=== PATIENT | male | born 1950 | race Caucasian/White ===

== ENCOUNTER 2018-02-14 20:52 | Inpatient (IN) | payer OTHER, MEDICAID ==
--- NOTE | 2018-02-14 21:03 | EDPHY ---
H & P Stated Complaint: SOB, lower extremity swelling, tachycardia Time Seen by Provider: 02/14/18 21:02 HPI/ROS: CHIEF COMPLAINT: Dyspnea, new onset atrial flutter, pedal edema HISTORY OF PRESENT ILLNESS: The patient presents to the ED with dyspnea, tachycardia and increasing pedal edema. The patient was seen at [facility] prior to arrival. The patient only has a history of hypertension and takes amlodipine, lisinopril metoprolol for this condition. The patient denies any fever. He does report a dry nonproductive cough. The patient reports marked dyspnea on exertion. The patient denies any history of fall or trauma. The patient denies abdominal pain, vomiting or diarrhea. The patient reports that his dyspnea is moderate to severe in nature. He has no prior history of arrhythmia. REVIEW OF SYSTEMS: A comprehensive 10 point review of systems is otherwise negative aside from elements mentioned in the history of present illness. Source: Patient Exam Limitations: No limitations - Personal History Current Tetanus Diphtheria and Acellular Pertussis (TDAP): No - Medical/Surgical History Hx Asthma: No Hx Chronic Respiratory Disease: No Hx Diabetes: No Hx Cardiac Disease: No Hx Renal Disease: No Hx Cirrhosis: No Hx Alcoholism: No Hx HIV/AIDS: No Hx Splenectomy or Spleen Trauma: No Other PMH: HTN, hernia sx - Social History Smoking Status: Current every day smoker - Physical Exam Exam: General Appearance: Alert, no distress Eyes: Pupils equal and round no pallor or injection ENT, Mouth: Mucous membranes moist Respiratory: Rales bilateral lower lobes Cardiovascular: Tachycardic, regular Gastrointestinal: Abdomen is soft and nontender, no masses, bowel sounds normal Neurological: 5/5 strength all 4 extremities Skin: Warm and dry, no rashes Musculoskeletal: Neck is supple nontender Extremities: 1+ bilateral pitting edema Constitutional: Initial Vital Signs Temperature (C) 36.7 C 02/14/18 20:59 Heart Rate 110 H 02/14/18 20:59 Respiratory Rate 20 02/14/18 20:59 Blood Pressure 170/115 H 02/14/18 20:59 O2 Sat (%) 96 02/14/18 20:59 O2 Delivery Mode Room Air Allergies/Adverse Reactions: Penicillins Allergy (Verified 02/14/18 20:59) Home Medications: Medication Instructions Recorded Lisinopril 40 mg PO DAILY 04/08/13 Pharmacy Completed 04/15/13 04/15/13 Metoprolol Tartrate 07/09/13 Medical Decision Making - Diagnostics EKG Interpretation: EKG: Complete interpretation has been separately recorded in the [email or web address] archive. Summary impression: Atrial flutter 2:1, rate 112. Imaging Results: Imaging Impressions Chest X-Ray 02/14/18 21:07 Impression: 1. Chronic cardiomegaly without failure. 2. No pneumonia. 3. In light of the patient's cigarette smoking history, this patient might benefit from low-dose chest CT lung cancer screening according to NASCET criteria. ED Course/Re-evaluation: The patient is observed to be in new onset atrial flutter with dyspnea. The patient is noted to have atrial fibrillation while on monitoring in the ED. The patient has been compliant with his outpatient medications including metoprolol, lisinopril and amlodipine. The patient was noted to be in atrial fibrillation. The patient's chest x-ray demonstrated no evidence of significant heart failure. Given his significant tachycardia a CT pulmonary angiogram was obtained which demonstrates cardiomegaly, mild pulmonary venous congestion and no evidence of a PE. The patient is relatively rate controlled at this point time. I do feel he should be admitted to the hospital for further evaluation and management of his atrial fibrillation. Consultation was made with the hospitalist service. He will be admitted by Dr. Chaudhari. Differential Diagnosis: Differential diagnosis considered includes atrial fibrillation, atrial flutter, myocardial infarction, pulmonary embolism, congestive heart failure - Data Points Laboratory Results: Laboratory Results 02/14/18 21:00 02/14/18 21:00 02/14/18 02/14/18 02/14/18 21:08 21:00 21:00 WBC 5.55 10^3/uL 10^3/uL (3.80-9.50) RBC 4.34 10^6/uL L 10^6/uL (4.40-6.38) Hgb 14.0 g/dL g/dL (13.7-17.5) Hct 41.7 % % (40.0-51.0) MCV 96.1 fL fL (81.5-99.8) MCH 32.3 pg pg (27.9-34.1) MCHC 33.6 g/dL g/dL (32.4-36.7) RDW 16.5 % H % (11.5-15.2) Plt Count 184 10^3/uL 10^3/uL (150-400) MPV 10.9 fL fL (8.7-11.7) Neut % (Auto) 65.4 % % (39.3-74.2) Lymph % (Auto) 24.7 % % (15.0-45.0) [place] % (Auto) 8.5 % % (4.5-13.0) Eos % (Auto) 0.7 % % (0.6-7.6) Baso % (Auto) 0.5 % % (0.3-1.7) Nucleat RBC Rel Count 0.0 % % (0.0-0.2) Absolute Neuts (auto) 3.63 10^3/uL 10^3/uL (1.70-6.50) Absolute Lymphs (auto) 1.37 10^3/uL 10^3/uL (1.00-3.00) Absolute Monos (auto) 0.47 10^3/uL 10^3/uL (0.30-0.80) Absolute Eos (auto) 0.04 10^3/uL 10^3/uL (0.03-0.40) Absolute Basos (auto) 0.03 10^3/uL 10^3/uL (0.02-0.10) Absolute Nucleated RBC 0.00 10^3/uL 10^3/uL (0-0.01) Immature Gran % 0.2 % % (0.0-1.1) Immature Gran # 0.01 10^3/uL 10^3/uL (0.00-0.10) Sodium 138 mEq/L mEq/L (135-145) Potassium 3.4 mEq/L mEq/L (3.3-5.0) Chloride 100 mEq/L mEq/L (97-110) Carbon Dioxide 26 mEq/l mEq/l (22-31) Anion Gap 12 mEq/L mEq/L (8-16) BUN 25 mg/dL H mg/dL (7-23) Creatinine 1.3 mg/dL mg/dL (0.7-1.3) Estimated GFR 55 Glucose 91 mg/dL mg/dL (70-100) Calcium 9.6 mg/dL mg/dL (8.5-10.4) POC Troponin I 0.01 ng/mL ng/mL (0.00-0.08) NT-Pro-B Natriuret Pep 5150 pg/mL H pg/mL (0-125) Point of Care Test Results: Chemistry 02/14/18 21:08 POC Troponin I 0.01 ng/mL ng/mL (0.00-0.08) Departure - Departure Disposition: [facility] Inpatient Acute Clinical Impression: CHF (congestive heart failure), Atrial flutter Condition: Good
--- NOTE | 2018-02-14 21:08 | CPEKG ---
Heart Rate: 112 RR Interval: 536 P-R Interval: 120 QRSD Interval: 100 QT Interval: 348 QTC Interval: 475 P [place]: 54 QRS [place]: -50 T Wave [place]: 63 EKG Severity - ABNORMAL ECG - EKG Impression: ATRIAL FLUTTER WITH 2:1 AV BLOCK Electronically Signed By: Taurus Owens 14-Feb-2018 21:49:43
[2018-02-14 21:22] LABS: PLATELET COUNT 184 10^3/uL (150-400)
[2018-02-14] MEDS ORDERED: IOPAMIDOL (ISOVUE 370) 100 ML BTL IV ONE (21:51)
[2018-02-14] MEDS ORDERED: ONDANSETRON DISINTEGRATING 4 MG TAB PO PRN (22:11)
[2018-02-14] MEDS ORDERED: ONDANSETRON 4 MG/2 ML VIAL IVP PRN (22:11)
[2018-02-14] MEDS ORDERED: FUROSEMIDE 20 MG/2 ML VIAL IVP ONE (23:42)
[2018-02-14] MEDS ORDERED: ALBUTEROL 3 ML DEYVIAL IH PRN (23:44)
[2018-02-14] MEDS ORDERED: DILTIAZEM 25 MG/5 ML VIAL IVP ONE (23:45)
[2018-02-15] MEDS: NICOTINE 14 MG/24 HR PATCH TD SCH ×2 (00:14→09:45)
--- NOTE | 2018-02-15 02:01 | PDGENHP ---
History and Physical - Chief Complaint Shortness of breath - History of Present Illness 67 yo M w/ hx of HTN presents with shortness of breath. Mr. Salvador tells me he has probably been having symptoms for a year. He has noticed decreased exercise tolerance slowly over the last year. This has gotten particularly worse over the last few weeks. He has developed dyspnea with only minimal exertion, dry cough, significant leg swelling, and needs 3 pillows to be able to sleep at night. He denies infectious symptoms including fever, chills. Upon arrival in the ED patient was noted to be in Afib/flutter. He denies any prior history of this. He takes medication for hypertension only. He previously smoked as much as 3 packs a day but is now down to 2-3 cigarettes daily. He denies any prior diagnosis of COPD. Case discussed with Dr. Tomy Owens, previous records reviewed. History Information - Allergies/Home Medication List Allergies/Adverse Reactions: Penicillins Allergy (Verified 02/14/18 20:59) Home Medications: NK [No Known Home Meds] 02/14/18 [Last Taken Unknown] I have personally reviewed and updated: family history, medical history - Past Medical History hypertension - Surgical History Reports: hernia repair - Family History Additional family history: Mother had CHF - Social History Smoking Status: Current every day smoker Review of Systems Review of Systems: ROS: 10pt was reviewed & negative except for what was stated in HPI & below Physical Exam Physical Exam: Temp Pulse Resp BP Pulse Ox 36.9 C 154 H 28 H 174/110 H 98 02/14/18 23:14 02/15/18 00:09 02/14/18 23:14 02/14/18 23:14 02/14/18 23:14 O2 (L/minute) 1 Constitutional: no apparent distress, not in pain Eyes: PERRL, EOMI Ears, Nose, Mouth, Throat: moist mucous membranes, no oral mucosal ulcers Cardiovascular: regular rate and rhythym, no murmur, rub, or gallop, JVD (8 cm above clavicle @ 45 degrees), edema (2+ FOREST b/l to upper shins) Respiratory: no respiratory distress, expiratory wheeze (Mild), inspiratory crackles Gastrointestinal: normoactive bowel sounds, soft, non-tender abdomen Skin: warm, normal color Musculoskeletal: full muscle strength, no muscle tenderness Neurologic: AAOx3, CN II-XII Intact Psychiatric: interacting appropriately, not anxious Lab Data & Imaging Review 02/14/18 21:00 02/14/18 21:00 WBC 5.55 10^3/uL (3.80-9.50) 02/14/18 21:00 RBC 4.34 10^6/uL (4.40-6.38) L 02/14/18 21:00 Hgb 14.0 g/dL (13.7-17.5) 02/14/18 21:00 Hct 41.7 % (40.0-51.0) 02/14/18 21:00 MCV 96.1 fL (81.5-99.8) 02/14/18 21:00 MCH 32.3 pg (27.9-34.1) 02/14/18 21:00 MCHC 33.6 g/dL (32.4-36.7) 02/14/18 21:00 RDW 16.5 % (11.5-15.2) H 02/14/18 21:00 Plt Count 184 10^3/uL (150-400) 02/14/18 21:00 MPV 10.9 fL (8.7-11.7) 02/14/18 21:00 Neut % (Auto) 65.4 % (39.3-74.2) 02/14/18 21:00 Lymph % (Auto) 24.7 % (15.0-45.0) 02/14/18 21:00 [place] % (Auto) 8.5 % (4.5-13.0) 02/14/18 21:00 Eos % (Auto) 0.7 % (0.6-7.6) 02/14/18 21:00 Baso % (Auto) 0.5 % (0.3-1.7) 02/14/18 21:00 Nucleat RBC Rel Count 0.0 % (0.0-0.2) 02/14/18 21:00 Absolute Neuts (auto) 3.63 10^3/uL (1.70-6.50) 02/14/18 21:00 Absolute Lymphs (auto) 1.37 10^3/uL (1.00-3.00) 02/14/18 21:00 Absolute Monos (auto) 0.47 10^3/uL (0.30-0.80) 02/14/18 21:00 Absolute Eos (auto) 0.04 10^3/uL (0.03-0.40) 02/14/18 21:00 Absolute Basos (auto) 0.03 10^3/uL (0.02-0.10) 02/14/18 21:00 Absolute Nucleated RBC 0.00 10^3/uL (0-0.01) 02/14/18 21:00 Immature Gran % 0.2 % (0.0-1.1) 02/14/18 21:00 Immature Gran # 0.01 10^3/uL (0.00-0.10) 02/14/18 21:00 Sodium 138 mEq/L (135-145) 02/14/18 21:00 Potassium 3.4 mEq/L (3.3-5.0) 02/14/18 21:00 Chloride 100 mEq/L (97-110) 02/14/18 21:00 Carbon Dioxide 26 mEq/l (22-31) 02/14/18 21:00 Anion Gap 12 mEq/L (8-16) 02/14/18 21:00 BUN 25 mg/dL (7-23) H 02/14/18 21:00 Creatinine 1.3 mg/dL (0.7-1.3) 02/14/18 21:00 Estimated GFR 55 02/14/18 21:00 Glucose 91 mg/dL (70-100) 02/14/18 21:00 Calcium 9.6 mg/dL (8.5-10.4) 02/14/18 21:00 POC Troponin I 0.01 ng/mL (0.00-0.08) 02/14/18 21:08 NT-Pro-B Natriuret Pep 5150 pg/mL (0-125) H 02/14/18 21:00 Imaging Review: Imaging Impressions Chest X-Ray 02/14/18 21:07 Impression: 1. Chronic cardiomegaly without failure. 2. No pneumonia. 3. In light of the patient's cigarette smoking history, this patient might benefit from low-dose chest CT lung cancer screening according to NASCET criteria. Chest/Thorax CTA 02/14/18 21:48 Impression: 1. Suspect early/impending CHF with CAD and LVH. 2. No evidence for pulmonary embolic disease. Results called to Dr. Owens at 20:45 pm. General information for patients regarding this examination can be found at [email or web address]. If you have questions or comments about this report, please contact me at [phone] (hospital) or [phone] (cell). Visualized and Interpreted EKG results: Yes EKG Interpretation: Positive for: other (Aflutter) Assessment & Plan Assessment: 67 yo M w/ HTN and significant smoking hx p/w new Afib/flutter and likely new CHF. Plan: 1. Afib/flutter - Aflutter on initial ECG but in Afib during my evaluation. Patient denies any prior hx of this. I suspect trigger for onset is new, decompensated CHF. - Admit to PCU for observation - Monitor on telemetry - Diltiazem IVP 10 mg x1 for now, repeat if necessary - Will benefit from volume management as below - [id number] of 2 (3 if new CHF confirmed), would discuss anticoagulation prior to discharge 2. Suspected acute, decompensated CHF - No prior hx of this but diagnosis suggested by elevated BNP, cardiomegaly, elevated JVP, and significant LE edema. - Lasix 20 mg IV BID - TTE ordered for further evaluation - Daily weights, monitor I/Os, cardiac diet 3. HTN - Continue home medications, needs med reconciliation 4. Suspected COPD - No prior diagnosis but has 50+ pack year tobacco hx and mild wheeze on exam. I do not suspect acute exacerbation. - Albuterol PRN - Would recommend outpatient PFTs Diet - Cardiac Code - Full Ppx - LMWH Dispo - Admit under observation status
[2018-02-15 04:28] LABS: PLATELET COUNT 168 10^3/uL (150-400)
[2018-02-15] MEDS ORDERED: FUROSEMIDE 20 MG/2 ML VIAL IVP SCH (09:00)
[2018-02-15] MEDS ORDERED: ENOXAPARIN 40 MG/0.4 ML SYR SC SCH (09:00)
[2018-02-15] MEDS ORDERED: DILTIAZEM 25 MG/5 ML VIAL IVP ONE (11:15)
[2018-02-15] MEDS ORDERED: DILTIAZEM 125 MG in D5W 125 ML IV SCH (11:15)
[2018-02-15] MEDS ORDERED: ATROPINE SULFATE 1 MG/10 ML SYR IVP ONE (11:16)
[2018-02-15] MEDS ORDERED: APIXABAN 5 MG TAB PO SCH (12:30)
--- NOTE | 2018-02-15 13:19 | ECHO ---
[email or web address] [address] [address] Main: [phone] Fax: Transthoracic Echocardiogram Name: NIXON FOSTER MR#: [id number] Study Date: 02/15/2018 Study Time: 10:10 AM Date of : 1950 Age: 67 year(s) Height: 175.3 cm (69 in.) Weight: 74.84 kg (165 lb.) BSA: 1.9 m2 Gender: Male Examination: Echo Indication: AF, New CHF Image Quality: Adequate Contrast: Requested by: Jose Luis Colón BP: 174 mmHg/106 mmHg Heart Rate: Rhythm: Indication: AF, New CHF Procedure Staff Senior Database Administrator: Ritu Daniels RDCS Reading Physician: Chauncey Elliott MD Requesting Provider: Conclusions: No pericardial effusion. Concentric left ventricular hypertrophy moderately reduced LV systolic function ejection fraction 35% with inferobasilar hypokinesis. Severely dilated left atrium with severe mitral regurgitation. Aortic valve sclerosis with mild aortic regurgitation. Moderate tricuspid regurgitation with a right ventricular systolic pressure of 38 mm of mercury. Measurements: Chambers Valvular Assessment AV/MV Valvular Assessment TV/PV Normal Normal Normal Name Value Range Name Value Range Name Value Range Ao Jeny (2D): 3.2 cm (1.4 cm-2.6 AV Vmax: 1.30 m/s (1 m/s-1.7 TR Vmax: 2.88 mm/s ( - ) cm) m/s) TR PGmax: 33 mmHg ( - ) IVSd (2D): 1.7 cm (0.6 cm-1.1 AV maxP mmHg ( - ) syst. PAP: 38 mmHg ( - ) cm) AV meanP mmHg ( - ) PV Vmax: 0.58 m/s (0.6 m/s-0.9 LVDd (2D): 4.6 cm (4.2 cm-5.9 MCKENZIE (VTI): 1.4 cm ( - ) m/s) cm) MV E Vmax: 0.94 m/s ( - ) PV PGmax: 1 mmHg ( - ) LVDs (2D): 4.2 cm (2.1 cm-4 MV PHT: 0.053 s ( - ) cm) MVA (PHT): 4.2 s ( - ) LVPWd (2D): 1.5 cm (0.6 cm-1 cm) LVOTd 2.0 cm 2.0 cm mm LVEF (BP): 31 % (>=55 %) EF Range: 35-40 % RVDd(2D): 2.8 cm (1.9 cm-3.8 cmmm) Continued Measurements: Chambers Valvular Assessment AV/MV Valvular Assessment TV/PV Name Value Name Value Name Value LADs: 4.4 cm MV DecTime: 180 m/s CVP (est.): 5 mmHg Patient: NIXON FOSTER Study Date: 02/15/2018 Page 1 of 2 10:10 AM LADs Lon.5 cm MV E' Septal: 0.08 m/s LA Area: 31.5 cm2 MV E/E' Septal: 12.20 LA Volume: 137 ml MV E/E' Lateral: 10.90 LA Volume Index: 72.1 ml/m2 MR ERO: 0.410 cm2 MR PISA radius: 10 mm MR Reg. Volume: 68 ml Additional Vessels Name Value Ao Ascendin.5 cm Inferior Vena Cava: 2.0 cm Findings: Left Ventricle: Normal size left ventricle. Concentric LV hypertrophy. Mildly to moderately reduced systolic funtion. The ejection fraction is estimated to be 35-40 %. Normal diastolic LV function. Basal inferior and basal inferolateral hypokinesis with overall global hypokinesis. Right Ventricle: Normal size right ventricle. Normal RV function. Left Atrium: The left atrium is severely dilated. Right Atrium: Right atrial enlargement. Mitral Valve: The mitral valve is normal in appearance and function. Mild mitral valve leaflet calcification is present. Severe mitral valve regurgitation is present. No mitral stenosis is present. Aortic Valve: The aortic valve is tri-leaflet. Aortic sclerosis is present. Mild aortic valve regurgitation is present. No aortic valve stenosis is present. Tricuspid Valve: The tricuspid valve is normal in appearance and function. Moderate tricuspid regurgitation is present. The pulmonary artery pressure is normal. Right ventricular systolic pressure measures 38mmHg. Pulmonic Valve: The pulmonic valve is normal in appearance and function. Mild pulmonic valve regurgitation is noted. Aorta: The aorta is normal. Normal size aortic root measuring 3.2 cm. Normal size ascending aorta measuring 2.5 cm. IVC: The IVC is normal sized. Pericardium: No pericardial effusion. No pleural effusion. (No Signature Object) Patient: NIXON FOSTER Study Date: 02/15/2018 Page 2 of 2 10:10 AM [id number]
--- NOTE | 2018-02-15 13:25 | GCON ---
Echocardiogram shows severe LV dysfunction with severe mitral regurgitation. Etiology of heart failure at this point unknown. Differential diagnosis would include valvular heart disease, uncontrolled atrial fibrillation, occult coronary artery disease in the setting of significant risk. Will plan for right left heart catheterization along with transesophageal echocardiogram in consideration for surgical evaluation. Risks and benefits were discussed with the patient will proceed. [f rep st] CONSULTATION DATE OF CONSULTATION: 02/15/2018 REASON FOR CONSULTATION: Atrial fibrillation/aflutter and newly diagnosed CHF. CONSULTING PHYSICIAN: Dr. Landry HISTORY OF PRESENT ILLNESS: This is a 67-year-old male whom we were asked to consult on for atrial fibrillation/aflutter and likely new CHF. The patient presented to the ED yesterday, 02/14/2018, with complaints of shortness of breath. Symptoms started a year ago and have gotten worse within the last week. The patient is an avid hiker and states he has had to shorten his hikes every day. He is now having shortness of breath just walking to the bathroom. He has also noted leg swelling, orthopnea, and PND, and is having to sleep with 5-7 pillows at night. He denies any abdominal swelling or chest pain. The patient also states that he has been having palpitations, dizziness and weakness that come and go. The patient was last seen by Dr. Bueno in August 2013 for management of hypertension. He was on HCTZ, metoprolol, and amlodipine. However, he is no longer taking these medication. Echo done on 07/24/2013, is reviewed with EF 70 %, mild MR, moderate NE, and rehp-ul-joyirdcg TR. Initial EKG in the ED showed 2:1 atrial flutter with rate of 112. He was given 1 dose of diltiazem in the ED. Today, his heart rate jumped up to 230 with symptoms of dizziness and weakness. Telemetry showed 2:1 atrial flutter. PAST MEDICAL HISTORY: Hypertension. PAST SURGICAL HISTORY: Hernia repair. MEDICATIONS: Please see EMR for further details. ALLERGIES: Penicillin. FAMILY HISTORY: Mother of CHF. SOCIAL HISTORY: Patient is a current smoker, states that he was smoking 3 packs a day and is now smoking 2-3 cigarettes a day. Drinks a few beers a week. REVIEW OF SYSTEMS: A 10-point review of systems is negative except for what is stated in the HPI. PHYSICAL EXAM: VITAL SIGNS: Blood pressure 164/80, heart rate 150, O2 saturation 99% on room air. GENERAL: Pleasant, well-nourished gentleman lying in the hospital bed wearing oxygen by nasal cannula, in no acute distress. Thin body habitus. HEENT: Normocephalic, atraumatic. No gross hearing deficit. Pupils equal and round. No scleral icterus. Moist mucous membranes. Patient only had 2 bottom teeth. RESPIRATORY: Expiratory wheeze and an inspiratory crackles heard, left greater than right. CARDIOVASCULAR: Tachycardiac. Bilateral lower extremity edema. No carotid bruits. Positive JVD and hepatojugular reflux. ABDOMEN: Soft, nontender. Bowel sounds present. NEURO : Alert and oriented. PSYCH: Appropriate mood and affect, very pleasant. DIAGNOSTIC STUDIES: EKG was personally reviewed by me, which showed atrial flutter with 2:1 AV block, rate of 112. Chest x-ray was also reviewed by me, which showed cardiomegaly. ASSESSMENT: This is 67-year-old male with history of hypertension. We were asked to consult on him for atrial fibrillation/aflutter and likely new diagnosis of congestive heart failure. PLAN: 1. Atrial fibrillation/aflutter. Aflutter on his EKG in the ED. 2:1 aflutter seen on telemetry, rate as high as 230. We discussed the following options with the patient. Initially, we discussed cardioverson. However, after Dr. Elliott read his echo, he is now recommending further evaluation. 2. Acute CHF exacerbation. He denies any prior history of this. BNP is 5051. The patient also has symptoms of shortness of breath, JVD, hepatojugular reflux, and leg edema. Patient has been started on Lasix 20 mg twice daily and claims good urine output. His echo is quite abnormal with severe MR, severe LV dysfunction. At this point, he would be better served with L/RHC with VISHAL to evaluate his severe cardiomyopathy. Patient is in agreement. We have started him on Carvedilol and will plan to add WESTON inhibitor in the near future. 3. Hypertension. Patient's blood pressure remains high, last taken it was 164/ 80. The patient has not been taking any of his high blood pressure medications that were prescribed to him years ago. We will manage this here, and he will have to follow up for further management in the outpatient setting. He has been started on Carvedilol and diuretic therapy. We will titrate medications as tolerated. 4. Tobacco abuse. He has tapered his consumption. We will student support counselor on cessation for risk reduction. /[id number]/MODL MTDD
[2018-02-15] MEDS ORDERED: PROTOCOL POTASSIUM 1 DOSE MISC PRN (13:52)
[2018-02-15] MEDS ORDERED: CARVEDILOL 6.25 MG TAB PO ONE (13:53)
[2018-02-15] MEDS ORDERED: NITROGLYCERIN 0.4 MG BTL SL PRN (13:56)
--- NOTE | 2018-02-15 14:17 | ASMTCMCOM ---
CM Note CM Note Notes: 02/15/2018 Case Management Note Met w/pt to discuss d/c needs. Rounded on pt this morning. Pt admitted for CHF, afb/flutter and HTN. Pt started on dilt drip today d/t elevated heart rate in the 200's for a short time. Pt lives in the [facility] apartments independently. He was assisted by [employer] in 2012- to find housing and has successfully transitioned from homelessness. 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 Kayla Raygoza at [facility]. 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 Pt reports strong support from friends and neighbors. Pt lists sister Mary Ellen [phone] as contact. Pt requested started the medicaid HCBS application. Faxed referral. This assessment will happen after pt d/c from hospital in his home setting. 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 There are no PT or OT evals ordered at this time. Pt is independently in ADL's. At this time it is not expected the pt will need skilled home care support at d/c. Case Management d/c poc: independent with follow up as directed. Case Management will follow. Date Signed: 02/15/2018 02:16 PM Electronically Signed By:Judi Del Castillo RN
[2018-02-15] MEDS ORDERED: POTASSIUM CL 10 MEQ TAB PO ONE (14:34)
[2018-02-15] MEDS: FUROSEMIDE 40 MG/4 ML VIAL IVP SCH (14:55)
--- NOTE | 2018-02-15 15:27 | HOSPPROG ---
Hospitalist Progress Note Assessment/Plan: 67 yo M w/ HTN and significant smoking hx p/w new dx Afib/flutter and CHF. Plan: # Afib/flutter - with rates increasing to as high as 230s with exertion today, improved with diltiazem. Patient only minimally symptomatic even with rates in the 200s. Given IV dilt x 2 and now on PO carvedilol per cardiology. May require VISHAL/CV but with new dx CHF as next timing of this uncertain # acute decompensated systolic heart failure: with EF of 30% on echo today, started on IV lasix now 40 bid. In the setting of above but also untreated HTN, VHD and possibly underlying CAD so at this time etiology not known. Plan for R/ L heart cath in am. # VHD: noted to have severe MR/moderate TR on echo, as above # COPD: based on cxr and smoking hx, no e/o acute exacerbation and no prior dx or treatment. Continue PRN albuterol for now, f/u for PfT when above resolved # HTN: with med non compliance prior to admit, remains mildly elevated on coreg/ lasix and will likely need addition of WESTON-i prior to dc # IP status, given severity of illness and need for further evaluation including invasive cardiac procedure Paieint new to my care. Old records reviewed and summarized as above. Care plan reviewed with cardiology. Subjective: no significant overnight events, patient seen when HR in the 220s and at that time he notes some dizzyness/weakness, no chest pain, does feel his heart racing Objective: Vital Signs Temp Pulse Resp BP Pulse Ox 36.8 C 110 H 18 175/112 H 99 02/15/18 07:56 02/15/18 14:56 02/15/18 07:56 02/15/18 14:56 02/15/18 11:02 Laboratory Results 02/15/18 03:27 02/15/18 03:27 02/14/18 02/15/18 02/16/18 05:59 05:59 05:59 Intake Total 450 Output Total 3270 400 Balance -2820 -400 awake alert disheveled anicteric poor dentition tachy to 200s regular difficult to assess murmur scattered occasional wheeze soft nt nd ble edema warm dry well perfused ICD10 Worksheet Patient Problems: Problems Problem Status Onset Inguinal hernia Active CHF (congestive heart failure) Acute Atrial flutter Acute
[2018-02-15] MEDS: CARVEDILOL 6.25 MG TAB PO SCH (19:21)
[2018-02-16 04:28] LABS: PLATELET COUNT 191 10^3/uL (150-400)
[2018-02-16 04:41] LABS: INR 1.16 (0.83-1.16)
[2018-02-16] MEDS ORDERED: FAMOTIDINE 20 MG TAB PO ONE (06:00)
[2018-02-16] MEDS ORDERED: ASPIRIN EC 325 MG TAB PO ONE (06:00)
[2018-02-16] MEDS ORDERED: diphenhydrAMINE 25 MG CAP PO ONE ×2 (06:00→08:55)
[2018-02-16] MEDS ORDERED: DIAZEPAM 5 MG TAB PO ONE (06:00)
[2018-02-16] MEDS ORDERED: LIDOCAINE 1% 300 MG/30 ML SDV ONE (07:55)
[2018-02-16] MEDS ORDERED: fentaNYL 100 MCG/2 ML INJ ONE ×2 (07:56→09:41)
[2018-02-16] MEDS ORDERED: IOPAMIDOL (ISOVUE-370) 150 ML BTL IV ONE (07:56)
[2018-02-16] MEDS ORDERED: VERAPAMIL 5 MG/2 ML VIAL ONE (07:56)
[2018-02-16] MEDS ORDERED: MIDAZOLAM 2 MG/2 ML VIAL ONE ×2 (07:56→09:36)
[2018-02-16] MEDS ORDERED: HEPARIN 10,000 UNIT/10 ML MDV (1,000 UNIT/ML) ONE (07:56)
[2018-02-16] MEDS ORDERED: POTASSIUM Cl (KCl) 100 ML IV SCH (08:17)
[2018-02-16] MEDS ORDERED: POTASSIUM CL 10 MEQ TAB PO ONE ×3 (08:31→21:39)
[2018-02-16] MEDS ORDERED: POTASSIUM CL 20 MEQ TAB PO ONE (08:45)
--- NOTE | 2018-02-16 08:48 | PDMN ---
Medical Necessity Medical necessity: Change to IP; los>2mn for afib/fluter w/HR 230's, acute decompensated systolic heart failure, and elevated BP; requires IV Lasix, possible VISHAL/CV, BP control, and further eval including invasive cardiac procedure; comorbid VHD, COPD, HTN; per order and progress note 02/15/18
[2018-02-16] MEDS ORDERED: ASPIRIN 81 MG CHEWABLE TAB ONE (08:55)
[2018-02-16] MEDS: CARVEDILOL 6.25 MG TAB PO SCH (08:57)
[2018-02-16] MEDS ORDERED: FAMOTIDINE 20 MG/NACL/50 ML BAG IV ONE (09:04)
[2018-02-16] MEDS ORDERED: ASPIRIN 325 MG TAB ONE (09:04)
--- NOTE | 2018-02-16 09:09 | PDPROPOC ---
Sedation Plan of Care Sedation Plan of Care: vital signs stable, mental status noted, patient educated of risks, benefits, alternatives, patient can tolerate sedation ASA Classification: ASA 3 Planned drugs: fentanyl, midazolam Mallampati Score: Class 1 Mallampati Reference Image: Patient passed 3-3-2 rule?: Yes
[2018-02-16] MEDS ORDERED: ADENOSINE 6 MG/2 ML VIAL ONE (09:44)
[2018-02-16] MEDS ORDERED: ATROPINE SULFATE 1 MG/10 ML SYR IVP PRN (10:02)
--- NOTE | 2018-02-16 10:05 | PDDXCAT ---
Diagnostic Cath Note - . 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: Earl Indication: other (Class 3 CHF with severe mitral regurgitation) - Procedure Access: right groin Procedure: left heart catheterization, coronary angiography, left ventriculogram , right heart catheterization - Materials Left Heart Cath size: 6F Left Heart Cath materials: standard multipack (JL4, JR4, pigtail) Right Heart Cath size: 7F Right Heart Cath materials: PWP catheter - Findings-Left Heart Catheterization LM: Unobstructed LAD: Unobstructed LCX: Dominant: Unobstructed RCA: Small non dominant EDP: 12 mm of mercury LVEF: 50 Wall motion: Global hypokinesis - Findings-Right Heart Catheterization RA: 8 mm of mercury RV: 38/8 mm of mercury PA: 38/13 mm of mercury PAOP: 12 mm of mercury Complications: None Estimated blood loss: <50ml Closure method: Angioseal Assessment: Angiographically normal coronary arteries. Mild LV dysfunction with ejection fraction of 50% and normal filling pressures. Query hypertensive cardiomyopathy Plan: Aggressive medical therapy. Considerations for mitral valve repair/Maze procedure. Patient Problems: Problems Problem Status Onset Inguinal hernia Active CHF (congestive heart failure) Acute Atrial flutter Acute
--- NOTE | 2018-02-16 10:09 | SOAPPROG ---
SAMANTHA Progress Note Assessment/Plan: Assessment: 1. New onset atrial fibrillation with spontaneous conversion to sinus rhythm 2. Severe mitral regurgitation 3. Hypertension 4. COPD 5. Hypokalemia 6. Tobacco abuse Procedure: Echocardiogram, left right heart catheterization transesophageal echocardiogram. 02/16/18 10:05 Impression: Studies today suggest a hypertensive cardiomyopathy with moderate to severe mitral regurgitation. Ejection fraction is now 50% with spontaneous conversion to sinus rhythm. Recommendations are for aggressive medical therapy. His filling pressure show that he is currently euvolemic. Will review echocardiography with my surgical colleagues considerations for mitral valve repair and/or Maze procedure. For now continue medical therapy with plans for discharge and outpatient follow-up. No indications for surgical intervention on this admission. Aggressive pulmonary toilet with smoking cessation. In the short term will continue Eliquis for anticoagulation in the setting of paroxysmal atrial fibrillation. Transition to low-dose metoprolol for rate and rhythm control and underlying cardiomyopathy. Subjective: Feeling well. Anxious. No further shortness of breath. No PND orthopnea. No palpitations or syncope. Objective: Medications Generic Name Dose Route Start Last Admin Trade Name Vandana PRN Reason Stop Dose Admin Carvedilol 6.25 mg 02/15/18 18:00 02/16/18 08:57 Coreg PO 08/14/18 17:59 6.25 mg BIDMEAL [facility] Diltiazem HCl 125 mg/ Dextrose 125 mls @ 0 mls/hr 02/15/18 11:15 02/15/18 12: 14 IV 08/14/18 11:14 125 mls CONT MILVIA Protocol Per Protocol Furosemide 40 mg 02/15/18 13:53 02/15/18 14:55 Lasix Injection IVP 08/14/18 08:59 40 mg [facility]UR [facility] Albuterol 3 ml 02/14/18 23:44 Proventil Neb IH 08/13/18 23:43 Q4HRS PRN Short of Breath/Dyspnea Vital Signs Temp Pulse Resp BP Pulse Ox 36.7 C 108 H 12 139/97 H 95 02/16/18 07:46 02/16/18 07:46 02/16/18 07:46 02/16/18 07:46 02/16/18 07:46 Laboratory Results 02/16/18 03:42 02/16/18 03:42 02/15/18 02/16/18 02/17/18 05:59 05:59 05:59 Intake Total 1950 Output Total 3480 Balance -1530 PT 15.0 SEC (12.0-15.0) 02/16/18 03:42 INR 1.16 (0.83-1.16) 02/16/18 03:42 Physical Exam - Physical Exam General Appearance: alert, no apparent distress EENT: other (Poor dentition) Neck: supple Respiratory: decreased breath sounds, rhonchi Cardiac/Chest: normal peripheral pulses, regular rate, rhythm, No JVD Abdomen: normal bowel sounds, non-tender, soft Skin: normal color, No rash Extremities: No pedal edema, No calf tenderness Neuro/Psych: no motor/sensory deficits, alert, normal mood/affect ICD10 Worksheet Patient Problems: Problems Problem Status Onset Atrial flutter Acute CHF (congestive heart failure) Acute Inguinal hernia Active Review of Systems - Review of Systems Constitutional: no symptoms reported EENTM: no symptoms reported Respiratory: no symptoms reported Cardiac: no symptoms reported Gastrointestinal/Abdominal: no symptoms reported Genitourinary: no symptoms Musculoskelatal: no symptoms Skin: no symptoms Neurological: no symptoms, anxiety Hematologic/Lymphatic: no symptoms reported Immunologic/allergic: no symptoms reported All Other Systems: Reviewed and Negative
[2018-02-16] MEDS: NICOTINE 14 MG/24 HR PATCH TD SCH (10:23)
[2018-02-16] MEDS: FUROSEMIDE 40 MG/4 ML VIAL IVP SCH (10:24)
--- NOTE | 2018-02-16 12:53 | ECHO ---
[email or web address] [address] [address] Main: [phone] Fax: Transesophageal Echocardiography Name: NIXON FOSTER MR#: [id number] Study Date: 02/16/2018 Study Time: 09:09 AM Date of : 1950 Age: 67 year(s) Height: ( ) Weight: ( ) BSA: Gender: Male Examination: VISHAL Indication: evaluate mitral valve Image Quality: Contrast: Requested by: Ritu Calvert Heart Rate: Rhythm: BP: / Procedure Staff Shoe Treer: Ritu Daniels [facility] Reading Physician: Chauncey Elliott MD Requesting Provider: VISHAL Exam Details Conclusions: Reduced LV systolic function ejection fraction 40%. Moderate to severe mitral regurgitation with centrally directed jets. Mild to moderate aortic regurgitation. Left atrial enlargement. No thrombus within the left atrial appendage. Measurements: Chambers Valvular Assessment AV/MV Valvular Assessment TV/PV Normal Normal Normal Name Value Range Name Value Range Name Value Range EF Range: 40 % Additional Measurements: Findings: Left Ventricle: Normal size left ventricle. The ejection fraction is estimated to be 40 %. Reduced LV function. Left Atrial Appendage: The left atrial appendage is unilobular. No thrombus in left appendage. Mitral Valve: The mitral valve is normal in appearance. Moderate to severe mitral regurgitation. No mitral stenosis is present. Aortic Valve: The aortic valve is tri-leaflet. Mild to moderate aortic valve regurgitation. No aortic valve stenosis is present. Patient: NIXON FOSTER Study Date: 02/16/2018 Page 1 of 2 09:09 AM Tricuspid Valve: The tricuspid valve is normal in appearance and function. Moderate tricuspid regurgitation is present. l1n (No Signature Object) Patient: NIXON FOSTER Study Date: 02/16/2018 Page 2 of 2 09:09 AM [id number]
--- NOTE | 2018-02-16 14:45 | HOSPPROG ---
Hospitalist Progress Note Assessment/Plan: 67 yo M w/ HTN and significant smoking hx p/w new dx Afib/flutter and CHF. Plan: # Afib/flutter - with rates increasing to as high as 230s has now spontaneously converted to SR, continue to monitor and will continue low dose metoprolol and eliquis for the time being # acute decompensated systolic heart failure: with EF of 30% on echo yesterday improved to 50% today now that he is in SR. s/p heart cath without significant CAD. Presumably this is a hypertensive cardiomyopathy. # VHD: noted to have severe MR/moderate TR, CT surgery has been consulted to consider MVR versus Maze procedure. # COPD: based on cxr and smoking hx, no e/o acute exacerbation and no prior dx or treatment. Continue PRN albuterol for now, f/u for PfT when above resolved # HTN: with med non compliance prior to admit, bp remains only mildly elevated currently on metoprolol, lisinopril and lasix # IP status--can likely dc today or tomorrow for OP f/u with CT surgery Subjective: no significant overnight events, patient notes feeling quite groggy after his cath Objective: Vital Signs Temp Pulse Resp BP Pulse Ox 37.5 C 105 H 14 153/104 H 95 02/16/18 11:18 02/16/18 11:18 02/16/18 11:18 02/16/18 11:18 02/16/18 11:18 Laboratory Results 02/16/18 03:42 02/16/18 03:42 02/15/18 02/16/18 02/17/18 05:59 05:59 05:59 Intake Total 1950 200 Output Total 3480 Balance -1530 200 PT 15.0 SEC (12.0-15.0) 02/16/18 03:42 INR 1.16 (0.83-1.16) 02/16/18 03:42 awake alert disheveled anicteric poor dentition rrr distant heart sounds scattered occasional wheeze soft nt nd ble edema warm dry well perfused ICD10 Worksheet Patient Problems: Problems Problem Status Onset Atrial flutter Acute CHF (congestive heart failure) Acute Inguinal hernia Active
[2018-02-16] MEDS: APIXABAN 5 MG TAB PO SCH (21:15)
[2018-02-16] MEDS: METOPROLOL TARTRATE 25 MG TAB PO SCH (21:15)
[2018-02-16] MEDS: TEMAZEPAM 15 MG CAP PO PRN (23:38)
[2018-02-17] MEDS: FUROSEMIDE 20 MG TAB PO SCH (08:03)
[2018-02-17] MEDS: NICOTINE 14 MG/24 HR PATCH TD SCH (08:03)
[2018-02-17] MEDS: METOPROLOL TARTRATE 25 MG TAB PO SCH (08:03)
[2018-02-17] MEDS: LISINOPRIL 2.5 MG TAB PO SCH (08:03)
[2018-02-17] MEDS: APIXABAN 5 MG TAB PO SCH ×2 (08:03→20:55)
[2018-02-17] MEDS: ACETAMINOPHEN 325 MG TAB PO PRN ×2 (08:12→20:55)
--- NOTE | 2018-02-17 09:00 | SOAPPROG ---
SAMANTHA Progress Note Assessment/Plan: Assessment: 1. New onset atrial fibrillation with spontaneous conversion to sinus rhythm 2. Severe mitral regurgitation 3. Hypertension 4. COPD 5. Hypokalemia 6. Tobacco abuse Procedure: Echocardiogram, left right heart catheterization transesophageal echocardiogram. 02/16/18 10:05 Impression: Studies today suggest a hypertensive cardiomyopathy with moderate to severe mitral regurgitation. Ejection fraction is now 50% with spontaneous conversion to sinus rhythm. Recommendations are for aggressive medical therapy. His filling pressure show that he is currently euvolemic. Will review echocardiography with my surgical colleagues considerations for mitral valve repair and/or Maze procedure. For now continue medical therapy with plans for discharge and outpatient follow-up. No indications for surgical intervention on this admission. Aggressive pulmonary toilet with smoking cessation. In the short term will continue Eliquis for anticoagulation in the setting of paroxysmal atrial fibrillation. Transition to low-dose metoprolol for rate and rhythm control and underlying cardiomyopathy. 02/17/18 08:57 Impression: Hypertensive cardiomyopathy with moderate to severe mitral regurgitation and persistent atrial fibrillation. Elevated blood pressure overnight with atrial fibrillation rates of 150. Currently anticoagulated. Recommendations: Increased beta-tara today to 50 mg p.o. Twice daily. Increase lisinopril to 5 mg a day. Elective cardioversion tomorrow morning to restore sinus rhythm. Surgical evaluation for mitral valve repair and Maze procedure. Subjective: Not feeling as well today. Increased heart rate with walking. No shortness of breath, PND, orthopnea. No chest pain. Objective: Medications Generic Name Dose Route Start Last Admin Trade Name Freq PRN Reason Stop Dose Admin Apixaban 5 mg 02/16/18 21:00 02/17/18 08:03 Eliquis PO 08/15/18 20:59 5 mg BID MILVIA Furosemide 20 mg 02/17/18 09:00 02/17/18 08:03 Lasix PO 08/16/18 08:59 20 mg DAILY MILVIA Lisinopril 2.5 mg 02/17/18 09:00 02/17/18 08:03 Zestril PO 08/16/18 08:59 2.5 mg DAILY MILVIA Metoprolol Tartrate 25 mg 02/16/18 21:00 02/17/18 08:03 Lopressor PO 08/15/18 20:59 25 mg BID MILVIA Metoprolol Tartrate 50 mg 02/17/18 09:00 Lopressor PO 08/16/18 08:59 BID MILVIA Vital Signs Temp Pulse Resp BP Pulse Ox 36.7 C 110 H 14 168/119 H 91 L 02/17/18 07:10 02/17/18 07:10 02/17/18 07:10 02/17/18 07:10 02/17/18 07:10 Laboratory Results 02/17/18 08:30 02/17/18 04:00 02/16/18 02/17/18 02/18/18 05:59 05:59 05:59 Intake Total 1950 1180 Output Total 3480 375 Balance -1530 805 PT 15.0 SEC (12.0-15.0) 02/16/18 03:42 INR 1.16 (0.83-1.16) 02/16/18 03:42 Physical Exam - Physical Exam General Appearance: alert, no apparent distress Neck: supple Respiratory: decreased breath sounds Cardiac/Chest: systolic murmur, irregularly irregular Peripheral Pulses: 1+: carotid (R), carotid (L), femoral (R), femoral (L), dorsalis-pedis (R), dorsalis-pedis (L) Abdomen: normal bowel sounds, non-tender, soft Back: No CVA tenderness Skin: warm/dry, No rash Extremities: non-tender, No pedal edema, No calf tenderness Neuro/Psych: no motor/sensory deficits, alert ICD10 Worksheet Patient Problems: Problems Problem Status Onset Inguinal hernia Active CHF (congestive heart failure) Acute Atrial flutter Acute Review of Systems - Review of Systems Constitutional: denies: chills, fever EENTM: no symptoms reported Respiratory: no symptoms reported Cardiac: irregular heart rate, palpitations Gastrointestinal/Abdominal: no symptoms reported Genitourinary: no symptoms Musculoskelatal: no symptoms Skin: no symptoms Neurological: no symptoms Hematologic/Lymphatic: no symptoms reported Immunologic/allergic: no symptoms reported
[2018-02-17] MEDS ORDERED: METOPROLOL TARTRATE 25 MG TAB PO ONE ×2 (09:15→12:30)
--- NOTE | 2018-02-17 13:29 | HOSPPROG ---
Hospitalist Progress Note Assessment/Plan: 67 yo M w/ HTN and significant smoking hx p/w new dx Afib/flutter and CHF. Plan: # Afib/flutter - initially spontaneously converted to SR but now back in a fib w/rates in 150s overnight, plan for CV in am, increased bb dose today, he is fairly symptomatic with a fib # acute decompensated systolic heart failure: with EF of 30% on echo while in a fib/flutter improved to 50% today in SR. s/p heart cath without significant CAD. Presumably this is a hypertensive cardiomyopathy with contribution of a fib /flutter and VHD as next. # VHD: noted to have severe MR/moderate TR, CT surgery has been consulted to consider MVR versus Maze procedure. # COPD: based on cxr and smoking hx, no e/o acute exacerbation and no prior dx or treatment. Continue PRN albuterol for now, f/u for PfT when above resolved # HTN: with med non compliance prior to admit, bp remains only mildly elevated currently on metoprolol, lisinopril and lasix # IP status Subjective: no significant overnight events, patient notes when HR increased again he became again sob/weak feeling Objective: Vital Signs Temp Pulse Resp BP Pulse Ox 36.7 C 110 H 16 139/102 H 99 02/17/18 11:19 02/17/18 11:19 02/17/18 11:19 02/17/18 11:19 02/17/18 11:19 Laboratory Results 02/17/18 08:30 02/17/18 04:00 02/16/18 02/17/18 02/18/18 05:59 05:59 05:59 Intake Total 1950 1180 480 Output Total 3480 375 300 Balance -1530 805 180 PT 15.0 SEC (12.0-15.0) 02/16/18 03:42 INR 1.16 (0.83-1.16) 02/16/18 03:42 awake alert disheveled anicteric poor dentition rrr distant heart sounds scattered occasional wheeze soft nt nd ble edema warm dry well perfused ICD10 Worksheet Patient Problems: Problems Problem Status Onset Atrial flutter Acute CHF (congestive heart failure) Acute Inguinal hernia Active
[2018-02-17] MEDS: METOPROLOL TARTRATE 50 MG TAB PO SCH (20:56)
[2018-02-17] MEDS: TEMAZEPAM 15 MG CAP PO PRN (22:30)
[2018-02-18 07:48] VITALS: BP 159/117
[2018-02-18] MEDS: METOPROLOL TARTRATE 50 MG TAB PO SCH (09:09)
[2018-02-18] MEDS: LISINOPRIL 2.5 MG TAB PO SCH (09:09)
[2018-02-18] MEDS: FUROSEMIDE 20 MG TAB PO SCH (09:09)
[2018-02-18] MEDS: NICOTINE 14 MG/24 HR PATCH TD SCH (09:09)
[2018-02-18] MEDS: APIXABAN 5 MG TAB PO SCH (09:10)
--- NOTE | 2018-02-18 10:19 | SOAPPROG ---
SOAP Progress Note Assessment/Plan: Assessment: 1. New onset atrial flutter. 2. Mod-severe mitral regurgitation 3. Hypertension 4. COPD 5. Hypokalemia 6. Tobacco abuse Initial presentation with dyspnea on exertion and signs/symptoms of congestive heart failure. Has had successful and aggressive diuresis with improvement in objective findings of volume overload and clinical signs and symptoms of congestive heart failure. His workup thus far indicates the presence of atrial flutter initially with a rapid ventricular response, and associated modest cardiomyopathy and evidence of moderate to severe mitral regurgitation. Possibilities regarding the etiology of his cardiomyopathy include a tachycardia induced cardiomyopathy, hypertension or potential valvular heart disease. Plan: After discussing this case with Dr. Elliott and after reviewing the records will proceed with a VISHAL and cardioversion today. We will also plan to gradually up titrate his medications to achieve better blood pressure control. He will continue on systemic anticoagulation. Following hospital discharge he will be followed closely with respect to his clinical progress and he will have sequential echocardiographic assessment of his ejection fraction and valvular heart disease. We may consider mitral valve repair/replacement to be performed in conjunction with a [place] Maze 4 procedure in the future depending on his response to therapy. He was counseled regarding the necessity for for abstinence from tobacco products and compliance with his medications. 02/18/18 10:21 Subjective: The patient was seen and examined. His chart was reviewed. The case was discussed with Dr. Chauncey Elliott. Today states he is feeling a little bit better. He has no evidence of lower extremity edema. He denies chest discomfort. He notes that symptoms of dyspnea on exertion have improved. On telemetry he continues to be in what appears to be 2:1 flutter. He denies palpitations. I reviewed his previous VISHAL, surface echocardiogram and cardiac catheterization images personally. Objective: Vital Signs Temp Pulse Resp BP Pulse Ox 36.6 C 108 H 18 159/117 H 99 02/18/18 07:46 02/18/18 07:46 02/18/18 07:46 02/18/18 07:46 02/18/18 07:46 Laboratory Results 02/17/18 08:30 02/18/18 03:16 02/17/18 02/18/18 02/19/18 05:59 05:59 05:59 Intake Total 1180 1410 Output Total 375 650 Balance 805 760 PT 15.0 SEC (12.0-15.0) 02/16/18 03:42 INR 1.16 (0.83-1.16) 02/16/18 03:42 Physical Exam - Physical Exam General Appearance: thin EENT: pharynx normal, other (Poor dentition) Neck: non-tender, full range of motion Respiratory: lungs clear, normal breath sounds, No respiratory distress, No accessory muscle use, No decreased breath sounds Cardiac/Chest: tachycardia, systolic murmur (1/6 holosystolic murmur apex), No edema, No gallop, No JVD Peripheral Pulses: 2+: carotid (R), carotid (L) Abdomen: non-tender, soft, No organomegaly, No pulsatile mass Male Genitalia: deferred Rectal: deferred Extremities: non-tender Neuro/Psych: alert, oriented x 3 ICD10 Worksheet Patient Problems: Problems Problem Status Onset Atrial flutter Acute CHF (congestive heart failure) Acute Inguinal hernia Active
--- NOTE | 2018-02-18 11:08 | CPEKG ---
Heart Rate: 106 RR Interval: 566 P-R Interval: 110 QRSD Interval: 104 QT Interval: 356 QTC Interval: 473 P [place]: 79 QRS [place]: -50 T Wave [place]: 134 EKG Severity - ABNORMAL ECG - EKG Impression: Atrial flutter with 2:1 AV block EKG Impression: LAD, CONSIDER LEFT ANTERIOR FASCICULAR BLOCK EKG Impression: LVH WITH SECONDARY REPOLARIZATION ABNORMALITY Electronically Signed By: Chirag Cardozo 20-Feb-2018 11:09:24
--- NOTE | 2018-02-18 11:26 | PDHPUP ---
History & Physical Update H&P update statement: This history and physical update is based on an assessment of the patient which was completed after admission or registration (within 24 hours), but prior to the surgery/procedure. H&P update: H&P reviewed & patient examined, no change in patient's condition since H&P completed
[2018-02-18] MEDS ORDERED: PROPOFOL 200 MG/20 ML VIAL ONE (11:27)
--- NOTE | 2018-02-18 11:52 | PDTEE1 ---
VISHAL Cardioversion Procedure Procedure: electrical cardioversion Indications: other (Atrial Flutter) Consent: signed and in chart Anticoagulation: eliquis Procedural Details: Pads were placed in anterior-posterior position. VISHAL probe was advanced and standard images obtained. There is no evidence of left atrial or left atrial appendage thrombus. Synchronized cardioversion attempt #1: 100J Results: normal sinus rhythm Conclusions: successful VISHAL cardioversion Patient Problems: Problems Problem Status Onset Inguinal hernia Active CHF (congestive heart failure) Acute Atrial flutter Acute
--- NOTE | 2018-02-18 11:59 | PDANEPAE ---
ANE History of Present Illness Patient presents for VISHAL/cardioversion ANE Past Medical History - Cardiovascular History Hx Arrhythmias: Yes Hx CHF / Valvular Disease: Yes - Pulmonary History Hx Oxygen in Use at Home: No Hx Sleep Apnea: No Sleep Apnea Screening Result - Last Documented: Positive - Endocrine History Hx Diabetes: No - Chronic Pain History Chronic Pain: No ANE Review of Systems Review of Systems: ANE Patient History - Allergies Allergies/Adverse Reactions: Penicillins Allergy (Verified 02/14/18 20:59) - Home Medications Home Medications: NK [No Known Home Meds] 02/14/18 [Last Taken Unknown] - NPO status NPO Status: no food or drink >8 hours NPO Since - Liquids (Date): 02/15/18 NPO Since - Liquids (Time): 09:00 NPO Since - Solids (Date): 02/15/18 NPO Since - Solids (Time): 09:00 - Anes Hx Anes Hx: no prior problems - Smoking Hx Smoking Status: Current every day smoker ANE Labs/Vital Signs - Labs Result Diagrams: 02/17/18 08:30 02/18/18 03:16 - Vital Signs Blood Pressure: 159/117 Heart Rate: 108 Respiratory Rate: 18 O2 Sat (%): 99 Height: 175.26 cm Weight: 67.585 kg ANE Physical Exam - Airway Neck exam: FROM Mallampati Score: Class 1 Mouth exam: dentures - Pulmonary Pulmonary: expiratory wheeze - Cardiovascular Cardiovascular: regular rate and rhythym - ASA Status ASA Status: III ANE Anesthesia Plan Anesthesia Plan: GA with mask (rba discussed)
--- NOTE | 2018-02-18 11:59 | POSTANESTH ---
Post Anesthetic Evaluation Cardiovascular Status: Similar to Pre-Op Cond Respiratory Status: Similar to Pre-op Cond. Level of Consciousness/Mental Status: Mildly Sleepy, Arousable Pain Control: Adequate, Prn Tx Ordered Nausea/Vomiting Control: Adequate, Prn Tx Ordered Complications Possibly Related to Anesthesia: None Noted
--- NOTE | 2018-02-18 12:02 | CPEKG ---
Heart Rate: 66 RR Interval: 909 P-R Interval: 140 QRSD Interval: 114 QT Interval: 432 QTC Interval: 453 P [place]: 116 QRS [place]: -65 T Wave [place]: 184 EKG Severity - ABNORMAL ECG - EKG Impression: SINUS RHYTHM EKG Impression: PROBABLE LVH WITH SECONDARY REPOL ABNRM Electronically Signed By: Chirag Cardozo 20-Feb-2018 11:08:44
--- NOTE | 2018-02-18 12:47 | ECHO ---
[email or web address] [id number] Main: [phone] Fax: Transesophageal Echocardiography Name: NIXON FOSTER MR#: [id number] Study Date: 02/18/2018 Study Time: 11:19 AM Date of : 1950 Age: 67 year(s) Height: ( ) Weight: ( ) BSA: Gender: Male Examination: Echo Indication: Pre Cardioversion Image Quality: Contrast: Requested by: Ritu Calvert Heart Rate: Rhythm: BP: 160 mmHg/115 mmHg Procedure Staff Municipal Engineer: Demario Aguillon RDCS Reading Physician: Chirag Cardozo MD Requesting Provider: VISHAL Exam Details Conclusions: Mildly dilated left ventricle. Severely reduced systolic LV function. 30%, There is moderate global hypokinesis.. Good color flow doppler in the left atrial appendage. No thrombus in left appendage. The mitral valve is normal in appearance. Moderate mitral valve regurgitation is present. Proceeded with successful elective DC cardioversion.. Measurements: Chambers Valvular Assessment AV/MV Valvular Assessment TV/PV Normal Normal Normal Name Value Range Name Value Range Name Value Range Additional Measurements: Findings: Left Ventricle: Mildly dilated left ventricle. Severely reduced systolic LV function. 30%, There is moderate global hypokinesis.. Right Ventricle: Normal size right ventricle. Left Atrial Appendage: Patient: NIXON FOSTER Study Date: 02/18/2018 Page 1 of 2 11:19 AM Good color flow doppler in the left atrial appendage. No thrombus in left appendage. Right Atrium: The right atrium is normal in size. Mitral Valve: The mitral valve is normal in appearance. Moderate mitral valve regurgitation is present. Aortic Valve: The aortic valve is normal in appearance and function. Mild aortic valve regurgitation is present. Tricuspid Valve: The tricuspid valve appears normal. Pulmonic Valve: The pulmonic valve is normal in appearance and function. Aorta: The aorta is normal. Pericardium: No pericardial effusion. Exam Comments: Proceeded with successful elective DC cardioversion.. l1n (No Signature Object) Patient: NIXON FOSTER Study Date: 02/18/2018 Page 2 of 2 11:19 AM D:_[id number]
--- NOTE | 2018-02-18 13:39 | ASMTCMCOM ---
CM Note CM Note Notes: 02/18/2018 Case Management Note Ailyn Garner from [facility] attempted to meet with pt today to assess for HCBS needs. Pt was in a cardioversion procedure. Pt to meet w/[facility] field service representative after d/c. Case Management d/c poc: home independent with follow up as directed. Case Management to follow. Date Signed: 02/18/2018 01:38 PM Electronically Signed By:Judi Del Castillo RN
--- NOTE | 2018-02-18 14:45 | PDDCSUM ---
Discharge Summary Discharge Summary: Dates of service 02/15-02/18/18 Consultations: cardiology Procedures: echo, Chest CTA, VISHAL, CV, left heart cath/coronary angiography Hospital course by problem: 67 yo M w/ HTN and significant smoking hx p/w new dx Afib/flutter and CHF. Plan: # Afib/flutter - initially spontaneously converted to SR but now back in a fib w/rates in 150s overnight, s/p VISHAL and CV and discharged on eliquis and metoprolol # acute decompensated systolic heart failure: with EF of 30% on echo while in a fib/flutter improved to 50% today in SR. s/p heart cath without significant CAD. Presumably this is a hypertensive cardiomyopathy with contribution of a fib /flutter and VHD as next. # VHD: noted to have severe MR/moderate TR, CT surgery has been consulted to consider MVR versus Maze procedure. # COPD: based on cxr and smoking hx, no e/o acute exacerbation and no prior dx or treatment. Continue PRN albuterol for now, f/u for PfT when above resolved # HTN: with med non compliance prior to admit, bp now fairly well controlled on metoprolol, lisinopril and lasix DC home in good condition f/u with CT surgery for consideration of valve surgery 35 min spent in dc more than half in coordination of care
--- NOTE | 2018-02-18 15:24 | ASMTDCNOTE ---
Case Management Discharge Discharge Order Complete? Answers: Yes Patient to Obtain Answers: Independently Medications Discharge Comments Notes: 02/18/2018 Case Management Note Pt to discharge independent. Referral made to [facility]. Pt to contact [facility] for assessment for HCBS services. Pt stated he wiill have his heart valves replaced in the coming weeks to month. No further case management d/c needs identified. Date Signed: 02/18/2018 03:23 PM Electronically Signed By:Judi Del Castillo RN
--- NOTE | 2018-02-18 15:26 | ASDISCHSUM ---
Discharge Information Plan Status:Home with No Needs Medically Cleared to Leave:02/18/2018 Discharge Date:02/18/2018 CM D/C Disposition:Home, Routine, Self-Care ADT D/C Disposition:Home, Routine, Self-Care Projected Discharge Date:02/18/2018 Transportation at D/C: Discharge Delay Reason: Follow-Up Date:02/18/2018 Discharge Slot: Final Diagnosis: Placement Information Patient Contact Information Contact Name:JOSE JUAN Relationship: Address: Home Phone: Work Phone: City: Alternate Phone: State/[place] Code: Email: Financial Information Financial Class:Medicare Primary Plan Desc:MEDICARE INPATIENT Primary Plan Number:[id number] Secondary Plan Desc:MEDICAID [place] Secondary Plan Number:[id number] Assessment Information LACE LACE Length of stay for Answers: 3 days current admission Acuity / Level of Answers: Yes Care: Did the patient have an inpatient admission? Comorbidities - select Answers: Congestive heart failure all that apply Other Notes: Atrial fibrillation; pedal edema; HTN # of Emergency department Answers: 1-2 visits in the last 6 months Score: 10 Date Signed: 02/18/2018 03:25 PM Electronically Signed By:Judi Del Castillo RN [facility] RYANNE Progress Note CM Angel PEARL Note Notes: 02/15/2018 Case Management Note Met w/pt to discuss d/c needs. Rounded on pt this morning. Pt admitted for CHF, afb/flutter and HTN. Pt started on dilt drip today d/t elevated heart rate in the 200's for a short time. Pt lives in the [address] apartments independently. He was assisted by [facility] in to find housing and has successfully transitioned from homelessness. 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 Kayla Raygoza at [facility]. He grocery shops at [facility] [employer] directly across the street from his apartment. Pt reports strong support from friends and neighbors. Pt lists sister Mary Ellen [phone] as contact. Pt requested started the medicaid HCBS application. Faxed referral. This assessment will happen after pt d/c from hospital in his home setting. 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 There are no PT or OT evals ordered at this time. Pt is independently in ADL's. At this time it is not expected the pt will need skilled home care support at d/c. Case Management d/c poc: independent with follow up as directed. Case Management will follow. Date Signed: 02/15/2018 02:16 PM Electronically Signed By:Judi Del Castillo RN [facility] CM Progress Note CM Note CM Note Notes: 02/18/2018 Case Management Note Ailyn Garner from [facility] attempted to meet with pt today to assess for HCBS needs. Pt was in a cardioversion procedure. Pt to meet /[facility] sales and marketing representative after d/c. Case Management d/c poc: home independent with follow up as directed. Case Management to follow. Date Signed: 02/18/2018 01:38 PM Electronically Signed By:Judi Del Castillo RN Case Management Discharge Plan Note Case Management Discharge Discharge Order Complete? Answers: Yes Patient to Obtain Answers: Independently Medications Discharge Comments Notes: 02/18/2018 Case Management Note Pt to discharge independent. Referral made to [facility]. Pt to contact [facility] for assessment for HCBS services. Pt stated he wiill have his heart valves replaced in the coming weeks to month. No further case management d/c needs identified. Date Signed: 02/18/2018 03:23 PM Electronically Signed By:Judi Del Castillo RN Intervention Information Intervention Type:*MCPHERSON-Signed Date of Service:02/15/2018 10:16 AM Patient Type:Observation Staff Member:Teresita Alex Hours: Discipline: Severity: Comment: Intervention Type:*IM-Signed Date of Service:02/18/2018 03:02 PM Patient Type:Inpatient Staff Member:Teresita Alex Hours: Discipline: Severity: Comment:
[2018-02-19] MEDS ORDERED: LISINOPRIL 5 MG TAB PO SCH (09:00)
== END 2018-02-18 16:58 | disposition home or self-care (01) | DRG 287 ==
LOC: EDUNIT# → INTOOBSV 21:34 → F2W 22:45 → OBSVTOIN 02-15 14:11
PROVIDERS: ADMIT Internal Medicine; ATTEND Internal Medicine
DX: I50.23 Acute on chronic systolic (congestive) heart failure (principal); I48.92 Unspecified atrial flutter; I48.0 Paroxysmal atrial fibrillation; I11.0 Hypertensive heart disease with heart failure; J44.9 Chronic obstructive pulmonary disease, unspecified; I34.0 Nonrheumatic mitral (valve) insufficiency; I25.10 Atherosclerotic heart disease of native coronary artery without angina pectoris; Z72.0 Tobacco use; E87.6 Hypokalemia
CPT/HCPCS: 84484-PO; C1760; G0378; J0153; J1644; J1650; J1940; J2250; J2704; J3010; J3480; Q9967

== ENCOUNTER 2018-02-27 02:24 | Inpatient (IN) | payer OTHER, MEDICAID ==
--- NOTE | 2018-02-27 02:34 | EDPHY ---
H & P Time Seen by Provider: 02/27/18 02:27 HPI/ROS: HPI CHIEF COMPLAINT: Shortness of breath, 5 lb weight gain HISTORY OF PRESENT ILLNESS: 67-year-old male history of AFib/a flutter, COPD, hypertensive, hypertensive cardiomyopathy, the recent hospitalization with CHF with EF of 30%, increased to 50%, additionally VHD, presents emergency room with progressively worsening shortness of breath over the last 2 days. He does also report increased weight gain of 5 lb and additionally bilateral lower extremity edema. Denies any chest pain. Does complain of shortness of breath. Upon arrival to the emergency room is noted he is hypertensive 200/100s. He states he has been compliant with his medication. He states he may not be as compliant with his diet. Patient states he has been compliant with his blood pressure medications as well as Lasix. Patient distally reports to me PND, dyspnea on exertion, and sitting up to try to sleep, gets very brief episodes sleep before he wakes up gasping for air. Past Medical History: Decompensated heart failure, hypertensive cardiomyopathy , reduced ejection fraction, VHD, AFib/a flutter Past Surgical History: No recent surgery Social History: Denies drugs, alcohol, continues to smoke tobacco. Family History: Noncontributory. ROS REVIEW OF SYSTEMS: A comprehensive 10 point review of systems is otherwise negative aside from elements mentioned in the history of present illness. Exam Constitutional triage nursing summary reviewed, vital signs reviewed, awake/ alert. Hypertensive on arrival. Not hypoxic. No distress. Eyes normal conjunctivae and sclera, EOMI, PERRLA. HENT normal inspection, atraumatic, moist mucus membranes, no epistaxis, neck supple/ no meningismus, no raccoon eyes. Respiratory good air movement however crackles bilaterally, rhonchorous breath sounds Cardiovascular rate normal, regular rhythm, no murmur, no edema, distal pulses normal. Gastrointestinal soft, non-tender, no rebound, no guarding, normal bowel sounds, no distension, no pulsatile mass. Genitourinary no CVA tenderness. Musculoskeletal bilateral lower extremity edema pitting, no midline vertebral tenderness, full range of motion, no calf swelling, no tenderness of extremities , no meningismus, good pulses, neurovascularly intact. Skin pink, warm, & dry, no rash, skin atraumatic. Neurologic awake, alert and oriented x 3, AAOx3, moves all 4 extremities equally, motor intact, sensory intact, CN II-XII intact, normal cerebellar, normal vision, normal speech. Psychiatric normal mood/affect. Heme/Lymph/Immune no lymphadenopathy. Differential Diagnosis: Includes but is not limited to in a particular order decompensated heart failure, hypertensive urgency, hypertensive emergency, pulmonary edema, acute coronary syndrome, cardiac arrhythmia, PE, pneumonia Medical Decision Making: Plan for this patient he arrives hypertensive, additionally increasing lower extremity edema, shortness of breath, dyspnea on exertion, PND, sitting up to sleep, brief episodes of sleep, appears to be volume overloaded with hypertensive here in emergency room. Will aggressively treat in the emergency room, IV Lasix will be order, IV hydralazine, dose of nitroglycerin, chest x-ray, EKG, patient may need nitroglycerin drip for BiPAP. Re-evaluation: EKG interpretation by me on record in [facility] system. Impression time of EKG 2:28 a.m., this is sinus rhythm rate of [address] depression with lead 2 in T-wave inversion, additionally ST depression V4 V5 V6 with T-wave inversions very similar to previous EKG dated 02/18/[address] elevation. ED x-ray chest one view: Significant cardiomegaly and diffuse pulmonary edema. Bilateral pleural effusions. Consistent with decompensated heart failure. 0324AM: Patient re-evaluated, current blood pressure 161/85, current heart rate 65 pulse ox 97% on 2 L. Patient resting comfortably. He received nitroglycerin 1 dose orally, 40 mg IV Lasix, and IV hydralazine. Blood pressure greatly improved. No distress. Patient need to be admitted to the hospital service for hypertensive urgency decompensated heart failure. Spoke with Dr. Silverio, agrees to admit. Source: Patient, EMS - Medical/Surgical History Hx Asthma: No Hx Chronic Respiratory Disease: No Hx Diabetes: No Hx Cardiac Disease: No Hx Renal Disease: No Hx Cirrhosis: No Hx Alcoholism: No Hx HIV/AIDS: No Hx Splenectomy or Spleen Trauma: No Other PMH: HTN, hernia sx - Social History Smoking Status: Current every day smoker Constitutional: Initial Vital Signs Temperature (C) 36.3 C 02/27/18 02:25 Heart Rate 75 02/27/18 02:25 Respiratory Rate 22 H 02/27/18 02:25 Blood Pressure 221/110 H 02/27/18 02:25 O2 Sat (%) 95 02/27/18 02:25 O2 Delivery Mode Nasal Cannula O2 (L/minute) 2 Allergies/Adverse Reactions: Penicillins Allergy (Verified 02/27/18 07:57) Unknown Home Medications: Medication Instructions Recorded Acetaminophen [Tylenol 325mg (*)] 650 mg PO Q4HRS PRN tab 02/18/18 Nicotine [Nicoderm Cq 14 mg (*)] 14 mg TD DAILY patch 02/18/18 Apixaban [Eliquis] 5 mg PO BID@06,16 02/27/18 Furosemide [Lasix 20 MG (*)] 20 mg PO DAILY06 02/27/18 Lisinopril [Zestril 5 mg (*)] 5 mg PO DAILY06 02/27/18 Metoprolol Tartrate [Lopressor 50 50 mg PO BID@06,16 02/27/18 mg (*)] Medical Decision Making - Data Points Laboratory Results: Laboratory Results 02/27/18 02:24 02/27/18 02:24 Medications Given: Acetaminophen (Tylenol) 650 mg PO Q4HRS PRN PRN Reason: Pain, Mild/Fever, Can Take PO Stop: 08/26/18 03:51 Last Admin: 02/27/18 19:53 Dose: 650 mg Apixaban (Eliquis) 5 mg PO BID@,16 [facility] Stop: 08/26/18 09:29 Last Admin: 02/27/18 17:44 Dose: 5 mg Carvedilol (Coreg) 12.5 mg PO BIDMEAL [facility] Stop: 08/26/18 17:59 Last Admin: 02/27/18 17:44 Dose: 12.5 mg Hydralazine HCl (Apresoline) 10 mg IVP Q2HRS PRN PRN Reason: SBP Greater Than Stop: 08/26/18 03:57 Last Admin: 02/27/18 18:55 Dose: 10 mg Nicotine (Nicoderm Cq) 14 mg TD DAILY [facility] Stop: 08/26/18 09:29 Last Admin: 02/27/18 10:46 Dose: 14 mg Discontinued Medications Furosemide (Lasix Injection) 40 mg IVP EDNOW ONE Stop: 02/27/18 02:36 Last Admin: 02/27/18 02:39 Dose: 40 mg Furosemide (Lasix Injection) 40 mg IVP BID@0900,1500 [facility] Stop: 08/26/18 08:59 Last Admin: 02/27/18 09:27 Dose: 40 mg Hydralazine HCl (Apresoline) 10 mg IVP EDNOW ONE Stop: 02/27/18 02:36 Last Admin: 02/27/18 02:39 Dose: 10 mg Lisinopril (Zestril) 5 mg PO ONCE ONE Stop: 02/27/18 13:01 Last Admin: 02/27/18 13:58 Dose: 5 mg Metoprolol Tartrate (Lopressor) 50 mg PO BID@06,16 [facility] Stop: 08/26/18 15:59 Last Admin: 02/27/18 18:09 Dose: Not Given Nitroglycerin (Nitrostat) 0.4 mg SL EDNOW ONE Stop: 02/27/18 02:36 Last Admin: 02/27/18 02:41 Dose: 0.4 mg Potassium Chloride (Klor-Con) 20 meq PO ONCE ONE Stop: 02/27/18 16:14 Last Admin: 02/27/18 17:44 Dose: 20 meq Point of Care Test Results: Chemistry 02/27/18 02:38 POC Troponin I 0.01 ng/mL ng/mL (0.00-0.08) Departure - Departure Disposition: [facility] Inpatient Acute Clinical Impression: Hypertensive urgency CHF (congestive heart failure) Qualifiers: Heart failure type: other Qualified Code(s): I50.9 - Heart failure, unspecified Pulmonary edema Qualifiers: Chronicity: acute Qualified Code(s): J81.0 - Acute pulmonary edema Condition: Serious
[2018-02-27] MEDS ORDERED: NITROGLYCERIN 0.4 MG BTL SL ONE (02:35)
[2018-02-27] MEDS ORDERED: hydrALAZINE 20 MG/ML VIAL IVP ONE (02:35)
[2018-02-27] MEDS ORDERED: FUROSEMIDE 40 MG/4 ML VIAL IVP ONE (02:35)
--- NOTE | 2018-02-27 02:38 | CPEKG ---
Heart Rate: 72 RR Interval: 833 QRSD Interval: 114 QT Interval: 404 QTC Interval: 443 QRS Ruso: -52 T Wave Ruso: 195 EKG Severity - ABNORMAL ECG - EKG Impression: ACCELERATED JUNCTIONAL RHYTHM EKG Impression: LAD, CONSIDER LEFT ANTERIOR FASCICULAR BLOCK EKG Impression: LVH WITH SECONDARY REPOLARIZATION ABNORMALITY EKG Impression: LATERAL INFARCT, AGE INDETERMINATE Electronically Signed By: Tyree Oscar 27-Feb-2018 07:05:26
[2018-02-27 02:39] LABS: PLATELET COUNT 221 10^3/uL (150-400)
[2018-02-27 02:46] LABS: INR 1.22 (0.83-1.16); PROTIME(PATIENT) 15.6 SEC (12.0-15.0)
[2018-02-27] MEDS ORDERED: ACETAMINOPHEN 325 MG TAB PO PRN (03:52)
[2018-02-27] MEDS ORDERED: ONDANSETRON 4 MG/2 ML VIAL IVP PRN (03:52)
[2018-02-27] MEDS ORDERED: NITROGLYCERIN 0.4 MG BTL SL PRN (03:59)
--- NOTE | 2018-02-27 04:57 | PDGENHP ---
History and Physical - Chief Complaint Shortness of breath - History of Present Illness Source-patient provides history appears reliable. EMR was reviewed and case discussed with ED provider. Patient was recently admitted to the hospital 02/15 through 02/18/2018 for acute on CHF exacerbation and AFib with RVR. HPI-this is a very pleasant 59-year-old gentleman with past medical history significant for atrial fib/flutter, hypertensive cardiomyopathy with systolic CHF, poorly-controlled HTN, COPD likely with the hit longstanding history of tobacco abuse, chronic anticoagulation on Eliquis and valvular heart disease with severe MR and moderate TR who presents to the emergency department this morning with complaints of sudden onset of shortness of breath waking him from sleep. Patient denies any associated chest pain. He does note that since his discharge she has been having increasing dyspnea on exertion as well as progressive orthopnea and PND. In just in the last 24 hr he has noted increasing lower extremity edema. With exertion patient also notes some dizziness but no syncope. Patient has a dry cough with occasional clear phlegm production. He denies any fevers or chills no recent sick contacts. Patient on also reports that his blood pressures at home systolic have been 160s to 170s over 90s. Patient denies any palpitations but he reports that he was feeling a little "A-fibby" and so he presented to the emergency department. Since his discharge patient reports that he has not been eating out but has been trying to cook at home however he does at supplemental salt to the rim of his plate. Additionally patient reports that he has not had any fluid restriction at home any drinks greater than 2 L of of liquids in a daily basis. Patient states that he has been trying to cut back he was previously at 3 packs per day smoking down to now 1-2 cigarettes per day if that. Patient denies any audible wheezing. During his hospitalization 02/15/2018 through 02/18/2018 patient was found to be in acute onset of systolic CHF with hypertensive urgency and atrial fibrillation/flutter. Patient underwent a VISHAL and cardiac catheterization which demonstrated nonocclusive disease. He has been anticoagulated on Eliquis. Additionally patient underwent aggressive diuresis with improvement of his symptoms. Patient states that he has been compliant with all of his antihypertensive medications and diuretic therapy since his discharge. History Information - Allergies/Home Medication List Allergies/Adverse Reactions: Penicillins Allergy (Verified 02/27/18 02:28) I have personally reviewed and updated: family history, medical history, social history, surgical history - Past Medical History atrial fibrillation (On chronic anticoagulation with Eliquis), CHF (Systolic, hypertensive cardiomyopathy with last EF of 30% improved to 50% at discharge on 02/18/2018.), hypertension Additional medical history: The valvular heart disease including severe MR and moderate TR. Likely COPD with longstanding history of tobacco abuse. - Surgical History Reports: hernia repair Additional surgical history: VISHAL, cardiac cath. - Family History Additional family history: Mother had CHF - Social History Smoking Status: Current every day smoker Alcohol Use: None Drug Use: None Additional social history: Patient smokes 1-2 cigarettes per day. He drinks occasional alcohol and uses occasional marijuana. Cor status-full. Review of Systems Review of Systems: ROS: 10pt was reviewed & negative except for what was stated in HPI & below Constitutional: Reports: no symptoms EENMT: Reports: no symptoms Cardiac: Reports: edema, lightheadedness. Denies: chest pain, palpitations, syncope Respiratory: Reports: cough, orthopnea, shortness of breath. Denies: stridor, wheezing Gastrointestinal: Reports: no symptoms Genitourinary: Reports: no symptoms Muscolosketal: Reports: no symptoms Skin: Reports: no symptoms Neurological: Reports: no symptoms Hematologic/Lymphatic: Reports: no symptoms Physical Exam Physical Exam: Selected Entries 02/27/18 02:25 Blood Pressure Automatic Method Heart Rate 75 Respiratory 22 H Rate O2 Sat (%) 95 Temperature (C) 36.3 C Blood Pressure 221/110 H Mean Arterial 147 H Pressure (MAP) O2 Delivery Room Air Mode Temperature Oral Source Temp Pulse Resp BP Pulse Ox 36.6 C 67 14 196/96 H 98 02/27/18 03:53 02/27/18 04:00 02/27/18 04:00 02/27/18 04:00 02/27/18 04:00 O2 (L/minute) 2 Constitutional: no apparent distress, chronically ill appearing, other (NAD. Pleasant thin adult gentleman is sitting up in gurney. In good spirits.) Eyes: PERRL (Slightly decreased reactivity light bilaterally but symmetric.), anicteric sclera, EOMI, No scleral injection Ears, Nose, Mouth, Throat: moist mucous membranes, poor dentition (Dentures in place. Missing upper dentition.) Cardiovascular: regular rate and rhythym, no murmur, rub, or gallop, pulses symmetric bilaterally, No edema Peripheral Pulses: 1+: dorsalis-pedis (R), dorsalis-pedis (L) Respiratory: no respiratory distress, no rales or rhonchi, clear to auscultation , No expiratory wheeze, No inspiratory crackles, No respiratory distress Gastrointestinal: normoactive bowel sounds, soft, non-tender abdomen, no palpable masses, No distension Genitourinary: no bladder tenderness, No low in urethra Skin: warm, normal color, no rashes or abrasions Musculoskeletal: full muscle strength, other (Patient moves all extremities.), No generalized weakness Neurologic: AAOx3, sensation intact bilaterally, weakness, other (Grossly nonfocal.), No facial droop Psychiatric: interacting appropriately, not anxious, not encephalopathic, thought process linear Lab Data & Imaging Review 02/27/18 02:24 02/27/18 02:24 WBC 5.20 10^3/uL (3.80-9.50) 02/27/18 02:24 RBC 3.89 10^6/uL (4.40-6.38) L 02/27/18 02:24 Hgb 12.3 g/dL (13.7-17.5) L 02/27/18 02:24 Hct 37.2 % (40.0-51.0) L 02/27/18 02:24 MCV 95.6 fL (81.5-99.8) 02/27/18 02:24 MCH 31.6 pg (27.9-34.1) 02/27/18 02:24 MCHC 33.1 g/dL (32.4-36.7) 02/27/18 02:24 RDW 15.9 % (11.5-15.2) H 02/27/18 02:24 Plt Count 221 10^3/uL (150-400) 02/27/18 02:24 MPV 10.5 fL (8.7-11.7) 02/27/18 02:24 Neut % (Auto) 57.3 % (39.3-74.2) 02/27/18 02:24 Lymph % (Auto) 31.2 % (15.0-45.0) 02/27/18 02:24 [place] % (Auto) 6.9 % (4.5-13.0) 02/27/18 02:24 Eos % (Auto) 3.8 % (0.6-7.6) 02/27/18 02:24 Baso % (Auto) 0.6 % (0.3-1.7) 02/27/18 02:24 Nucleat RBC Rel Count 0.0 % (0.0-0.2) 02/27/18 02:24 Absolute Neuts (auto) 2.98 10^3/uL (1.70-6.50) 02/27/18 02:24 Absolute Lymphs (auto) 1.62 10^3/uL (1.00-3.00) 02/27/18 02:24 Absolute Monos (auto) 0.36 10^3/uL (0.30-0.80) 02/27/18 02:24 Absolute Eos (auto) 0.20 10^3/uL (0.03-0.40) 02/27/18 02:24 Absolute Basos (auto) 0.03 10^3/uL (0.02-0.10) 02/27/18 02:24 Absolute Nucleated RBC 0.00 10^3/uL (0-0.01) 02/27/18 02:24 Immature Gran % 0.2 % (0.0-1.1) 02/27/18 02:24 Immature Gran # 0.01 10^3/uL (0.00-0.10) 02/27/18 02:24 PT 15.6 SEC (12.0-15.0) H 02/27/18 02:24 INR 1.22 (0.83-1.16) H 02/27/18 02:24 APTT 38.3 SEC (23.0-38.0) H 02/27/18 02:24 Sodium 140 mEq/L (135-145) 02/27/18 02:24 Potassium 3.8 mEq/L (3.3-5.0) 02/27/18 02:24 Chloride 103 mEq/L (97-110) 02/27/18 02:24 Carbon Dioxide 27 mEq/l (22-31) 02/27/18 02:24 Anion Gap 10 mEq/L (8-16) 02/27/18 02:24 BUN 24 mg/dL (7-23) H 02/27/18 02:24 Creatinine 1.3 mg/dL (0.7-1.3) 02/27/18 02:24 Estimated GFR 55 02/27/18 02:24 Glucose 95 mg/dL (70-100) 02/27/18 02:24 Calcium 9.6 mg/dL (8.5-10.4) 02/27/18 02:24 Magnesium 2.0 mg/dL (1.6-2.3) 02/27/18 02:24 Total Bilirubin 0.8 mg/dL (0.1-1.4) 02/27/18 02:24 Conjugated Bilirubin 0.5 mg/dL (0.0-0.5) 02/27/18 02:24 Unconjugated Bilirubin 0.3 mg/dL (0.0-1.1) 02/27/18 02:24 AST 44 IU/L (17-59) 02/27/18 02:24 ALT 43 IU/L (21-72) 02/27/18 02:24 Alkaline Phosphatase 57 IU/L (38-126) 02/27/18 02:24 POC Troponin I 0.01 ng/mL (0.00-0.08) 02/27/18 02:38 NT-Pro-B Natriuret Pep 4840 pg/mL (0-125) H 02/27/18 02:24 Total Protein 6.9 g/dL (6.3-8.2) 02/27/18 02:24 Albumin 3.7 g/dL (3.5-5.0) 02/27/18 02:24 Visualized and Interpreted Chest x-ray results: Yes Chest X-Ray results: no infiltrate, other (Cardiomegaly, prominent pulmonary vasculature, possibly some early cephalization. Small effusion on the left appears similar to previous chest x-ray.) Assessment & Plan Assessment: Pleasant 59-year-old gentleman with history of hypertensive cardiomyopathy with systolic CHF atrial fib flutter on chronic anticoagulation with Eliquis COPD likely due to longstanding history of tobacco abuse who presents emergency department with sudden onset of shortness of breath while at rest. #Acute on chronic systolic CHF (congestive heart failure) (Acute) - patient had a improving EF at time of discharge. Since leaving he has continued to add salt and have unrestricted fluid intake while at home despite use of his antihypertensive medications and his diuretic therapy by his report. Upon arrival patient's blood pressures were significantly elevated but did respond appropriately to p.r.n. Medications. Will plan to aggressively hydrate. Patient will be placed on fluid restriction. Further discussion with Cardiology as per day team. #Hypertensive urgency (Acute) - patient blood pressures have improved status post nitroglycerin hydralazine and Lasix. Blood pressures are slightly variable at this time will plan to resume his home medications once the med rec is available. #Pulmonary edema (Acute) - diuresis as noted above. Patient without any hypoxia. Patiently is currently in normal sinus rhythm. #Paroxysmal atrial fibrillation - continue patient's beta tara when med rec is available. Continue anticoagulation with Eliquis. # anemia - this is mild. Patient without any previous anemia on his last hospitalization he is currently on apixaban. Further evaluation with repeat a.m. Laboratory studies if continues to decline consider iron in stool studies. #Tobacco abuse - cessation was encouraged entirely. Nicoderm patch has been ordered p.r.n.. FEN - saline lock IV. Cardiac diet has been ordered with fluid restriction. Electrolyte monitoring replacement if needed. PPX-SCDs and continue patient's Eliquis. Cor status-full Disposition patient admitted to observation status at this time on PCU for close cardiac monitoring and continue diuresis. He has already voided over a L of fluid in the last several hours since some he was given Lasix. Will plan to aggressively fluid hydrate and also obtain a dietary consult on to further review with patient recommended salt, volume and dietary intake.
[2018-02-27] MEDS: hydrALAZINE 20 MG/ML VIAL IVP PRN ×2 (06:13→18:55)
[2018-02-27] MEDS ORDERED: FUROSEMIDE 40 MG/4 ML VIAL IVP SCH (09:00)
--- NOTE | 2018-02-27 09:09 | CPEKG ---
Heart Rate: 66 RR Interval: 909 P-R Interval: 140 QRSD Interval: 114 QT Interval: 448 QTC Interval: 470 P [place]: 110 QRS [place]: -56 T Wave [place]: 211 EKG Severity - ABNORMAL ECG - EKG Impression: SINUS RHYTHM EKG Impression: LAD, CONSIDER LEFT ANTERIOR FASCICULAR BLOCK EKG Impression: LVH WITH SECONDARY REPOLARIZATION ABNORMALITY Preliminary Awaiting MD Review
--- NOTE | 2018-02-27 09:32 | CPEKG ---
Heart Rate: 66 RR Interval: 909 P-R Interval: 140 QRSD Interval: 114 QT Interval: 448 QTC Interval: 470 P [place]: 110 QRS [place]: -56 T Wave [place]: 211 EKG Severity - ABNORMAL ECG - EKG Impression: SINUS RHYTHM EKG Impression: LAD, CONSIDER LEFT ANTERIOR FASCICULAR BLOCK EKG Impression: LVH WITH SECONDARY REPOLARIZATION ABNORMALITY Electronically Signed By: Maulik Bailey 28-Feb-2018 21:29:19
[2018-02-27] MEDS: NICOTINE 14 MG/24 HR PATCH TD SCH (10:46)
[2018-02-27] MEDS: APIXABAN 5 MG TAB PO SCH ×2 (10:46→17:44)
[2018-02-27] MEDS ORDERED: LISINOPRIL 5 MG TAB PO ONE (13:00)
--- NOTE | 2018-02-27 14:55 | ASMTCASEMG ---
Living Arrangements What is your living Answers: Alone arrangement? Who do you live with? Type Of Residence What kind of residence do Answers: Apartment you live in? Discharge Plan Comments Coordination Status Comments Notes: Pts case discussed in tx rounds. Pt is a 67 y/o man admitted for shortness of breath. Transitional care is following this case. Pt will most likely d/c independent when medically stable. No therapies ordered at this time. CM available for changes. Plan: Independent Date Signed: 02/27/2018 02:54 PM Electronically Signed By:BELA Fulton
[2018-02-27] MEDS ORDERED: METOPROLOL TARTRATE 50 MG TAB PO SCH (16:00)
[2018-02-27] MEDS ORDERED: POTASSIUM CL 20 MEQ TAB PO ONE (16:13)
--- NOTE | 2018-02-27 17:06 | HOSPPROG ---
Hospitalist Progress Note Assessment/Plan: #CHF - Exacerbation #Acute respiratory failure #pAfib #chronic AC #HTN, elevated #Abnormal EKG #indeterminate troponin Plan: -Ill ask cards to consult -Decrease IV Lasix to once daily -Increase Lisinopril -cont bb. -May need even increasing doses of lisinopril -He had chest pain yesterday and has an abnormal EKG. I'll repeat the EKG now and get a troponin. Cards to consult Subjective: SOB has improved. no cp at this time Objective: Vital Signs Temp Pulse Resp BP Pulse Ox 36.7 C 65 15 182/96 H 100 02/27/18 16:00 02/27/18 16:00 02/27/18 16:00 02/27/18 16:00 02/27/18 16:00 02/26/18 02/27/18 02/28/18 05:59 05:59 05:59 Intake Total 150 1610 Output Total 1150 2500 Balance -1000 -890 PT 15.6 SEC (12.0-15.0) H 02/27/18 02:24 INR 1.22 (0.83-1.16) H 02/27/18 02:24 - Physical Exam Constitutional: no apparent distress Eyes: PERRL Ears, Nose, Mouth, Throat: moist mucous membranes, hearing normal Cardiovascular: regular rate and rhythym, No edema Respiratory: no respiratory distress, reduced air movement Gastrointestinal: normoactive bowel sounds Genitourinary: no bladder fullness Skin: warm Musculoskeletal: No generalized weakness Neurologic: AAOx3 Psychiatric: interacting appropriately Lymph, Heme, Immunologic: No no cervical LAD, No petechiae ICD10 Worksheet Patient Problems: Problems Problem Status Onset CHF (congestive heart failure) Acute Hypertensive urgency Acute Pulmonary edema Acute Inguinal hernia Active Atrial flutter Acute
[2018-02-27] MEDS: CARVEDILOL 25 MG TAB PO SCH (17:44)
--- NOTE | 2018-02-27 19:21 | GCON ---
[f rep st] CONSULTATION CARDIOLOGY CONSULTATION REFERRING PHYSICIAN: Wes Fisher MD INDICATION FOR CARDIOLOGY CONSULTATION: Congestive heart failure. HISTORY OF PRESENT ILLNESS: The patient is a 67-year-old male with recent hospitalization between February 14 through February 18 for new onset of atrial fibrillation and flutter , decompensated systolic heart failure, valvular heart disease, and hypertension. He reports once discharged on February 18, he had been noticing symptoms of fatigue. He reports he has been compliant with his medications, but has not been compliant with limited salt intake. He had been noticing over the last few days brief episodes of "fluttering" in his chest, but reports no chest pain or pressure. Yesterday, he reported significant swelling in his lower extremities. He did weigh himself and found that he has been 5 pounds up since his hospital discharge. He had an office appointment scheduled for later this afternoon, but last evening, he became more short of breath and was concerned and came to the emergency department for further evaluation. Upon arrival, laboratory studies were drawn, showing an elevated BNP of 4840, negative troponin of 0.01. Chest x-ray did show mild pulmonary edema. Admitted to the hospital. His initial electrocardiogram did show sinus rhythm with inverted T-waves in inferolateral leads with LVH criteria. He was started on IV diuresis of Lasix, admitted to the PCU. He informs me at this time that he is noticing significant improvement in his dyspnea on exertion and feels that his swelling in his lower extremities has also improved. He reports at no time did he ever have chest pain or pressure. Does report over the last few days of some orthopnea, denies of any PND, denies of any near-syncope or syncopal events. Reports no history of fevers, chills, night sweats, or symptoms suggestive of infection. Reports no bleeding issues, currently on full anticoagulation with Eliquis. It was noted off his previous hospitalization, he did undergo cardiac catheterization on February 16, 2018, which showed angiographically normal coronary arteries. He did undergo VISHAL cardioversion on February 18, with note off VISHAL of mildly dilated LV with severely reduced LV systolic function with EF of 30% with moderate global hypokinesis. Mitral valve was noted to have moderate regurgitation at that time. During his cardiac catheterization when he converted back to sinus rhythm, his ejection fraction did improve up to 50%. PAST MEDICAL HISTORY: Patient's past medical history includes: 1. Paroxysmal atrial fibrillation. 2. Acute on chronic systolic congestive heart failure. 3. Nonischemic cardiomyopathy with EF of 30%. On most recent VISHAL, had noted to improved to 50% the day of catheterization when he was in sinus rhythm. 4. Hypertension. 5. Moderate MR. 6. COPD. 7. Tobacco abuse. PAST SURGICAL HISTORY: Includes hernia repair, VISHAL cardioversion, and cardiac catheterization. FAMILY HISTORY: The patient has recently lost his mother to CHF, but denies any significant family history of coronary artery disease. SOCIAL HISTORY: He currently smokes every day but does admit that he has cut down to 1-2 cigarettes since recent hospitalization. He occasionally drinks alcohol. He occasionally uses marijuana but denies of any illicit drug use. ALLERGIES: Penicillin. HOME MEDICATIONS: Include metoprolol tartrate 50 mg p.o. b.i.d., lisinopril 5 mg p.o. daily, Lasix 20 mg p.o. daily, Eliquis 5 mg p.o. b.i.d., Tylenol 650 mg p.o. q.4 p.r.n., nicotine patches 14 mg transdermal daily. REVIEW OF SYSTEMS: A 10-point review of systems done on this patient all negative except mentioned as above. PHYSICAL EXAMINATION: GENERAL APPEARANCE: Thin, elderly male who is alert and oriented to person, place, time, and situation. Appears to be under no acute distress. VITAL SIGNS: Current vital signs are blood pressure of 153/72, heart rate of 68, respirations 14, saturating 97% on 2 L nasal cannula, temperature of 36.4 degrees Celsius. HEENT: Head is normocephalic. Lips and tongue are pink and moist with no signs of cyanosis. Conjunctivae pink. NECK: Trachea is midline, +2 carotid pulses bilateral. No auscultated bruits. Jugular vein elevation of 5 cm above sternal notch. LUNGS: Expiratory wheezes with no rales noted in the bases. No rhonchi noted. No accessory muscle use. No intercostal muscle retraction noted. CARDIAC: Regular rate, regular rhythm , S1, S2. 1/6 to 2/6 systolic murmur noted along the left sternal border. ABDOMEN: Soft, nontender. Bowel sounds x4 quadrants. No organomegaly. No palpable masses. SKIN: [place], warm, dry. EXTREMITIES: No cyanosis. No clubbing. +1 to 2 peripheral edema, bilateral lower extremities to thighs. Right groin site: Previous catheter insertion site with no redness, swelling, drainage, ecchymosis, or hematoma. No auscultated bruit. Puncture site appeared almost completely healed. LABORATORY STUDIES: Laboratory studies drawn on admission showed WBC 5.20, hemoglobin of 12.3, hematocrit of 37.2, platelet count 221. INR 1.22. Sodium 140, potassium 3.8, chloride 103, CO2 27, BUN 24, creatinine 1.3, glucose 95, calcium 9.6. Magnesium 2.0. Total bilirubin 0.8, AST 44, ALT 43, alkaline phosphate 57, troponin 0.01 on admission. Repeated troponin done this morning at 10:15 was 0.046. ProBNP of 4840. Total protein 6.9, albumin 3.7. STUDIES: Electrocardiogram done at 9:18 am morning showing sinus rhythm , left anterior fascicular block, T-wave depression in inferolateral leads. In comparison to electrocardiogram done on February 18 at 12 noon post VISHAL, no significant change. Chest x-ray done on admission as mentioned above. VISHAL done on February 18, 2018, showed mildly dilated LV with severely reduced LV systolic function with EF of 30%, moderate global hypokinesis, moderate MR. Cardiac catheterization done on February 16, 2018, showing angiographically normal coronary artery disease with mild LV dysfunction. EF at that time was noted to be at 50% when the patient was in normal sinus rhythm. Echocardiogram done on February 15 showing concentric LVH with reduced LV systolic function with EF of 35 % with inferobasal hypokinesis, severely dilated LA with severe MR, moderate TR. RVSP at that time was estimated at 38 mmHg. CTA of chest done on February 14 showing no signs of pulmonary embolism. ASSESSMENT AND PLAN: 1. Acute on chronic systolic heart failure: Patient with elevated BNP greater than 4000. Weight on admission in comparison to weight on discharge from recent discharge up 3 kg. The patient reports significant improve symptoms with IV diuresis. We will continue monitoring inputs and outputs. Continue on IV Lasix for time being, with consideration of transitioning to torsemide in the next day or two. 2. Indeterminate troponin: The patient noted this afternoon to have repeated troponin level done which was 0.046, normal on admission. Patient with recent cardiac catheterization which showed normal coronary arteries. More than likely , this was due to flow mismatch due to his acute on chronic systolic heart failure. Will repeat troponin level in a.m. to ensure decline. 3. Nonischemic cardiomyopathy: Patient's most recent transesophageal echocardiogram showed decreased left ventricular systolic function with a global cardiomyopathy. Ejection fraction was noted to be 30% while in atrial fibrillation. Noted improvement in ejection fraction during cardiac catheterization when he was in sinus rhythm to 50%. At this time, I would like to transition him over from metoprolol tartrate to carvedilol. Will continue him on current [place] inhibitor. May consider adding Aldactone to his medication regimen as necessary. 4. Moderate mitral regurgitation: Noted to be moderate off most recent transesophageal echocardiogram. Medication management as mentioned above. Continue to monitor. Potentially patient will need at some point valve repair or replacement. Will need to be monitored with serial echocardiograms in the future. 5. Paroxysmal atrial fibrillation: Patient has maintained sinus rhythm since hospitalization. Change in beta-tara as mentioned above. Continue on continuous cardiac monitoring. Continue home anticoagulation of Eliquis. 6. Hypertension: Patient noted to be extremely hypertensive upon admission with initial blood pressure of 221/110. Hospital service has recently increased lisinopril. Again changing beta-tara from metoprolol to carvedilol to see if we get better blood pressure control. Continue on diuretic therapy of lisinopril. Hydralazine has been ordered p.r.n. Would consider starting him on Aldactone tomorrow if no improvement in blood pressure. 7. Tobacco abuse: The patient reports he has made significant progress with attempting to quit. Continue using nicotine patch. Have encouraged him to call [place] [facility] for further help as an outpatient. Thank you for this consultation. We will be glad to follow along with you. I have ordered for repeated troponin, basic metabolic panel, and magnesium level tomorrow to evaluate his therapy. /[id number]/MODL MTDD
[2018-02-28] MEDS ORDERED: LISINOPRIL 5 MG TAB PO SCH ×2 (06:00)
[2018-02-28] MEDS: APIXABAN 5 MG TAB PO SCH ×2 (06:20→16:55)
[2018-02-28] MEDS ORDERED: FUROSEMIDE 40 MG/4 ML VIAL IVP SCH (09:00)
[2018-02-28] MEDS: CARVEDILOL 25 MG TAB PO SCH ×2 (09:34→16:55)
[2018-02-28] MEDS: NICOTINE 14 MG/24 HR PATCH TD SCH (09:34)
[2018-02-28] MEDS: SPIRONOLACTONE 25 MG TAB PO SCH (09:34)
[2018-02-28] MEDS ORDERED: LISINOPRIL 10 MG TAB PO ONE (10:15)
[2018-02-28] MEDS ORDERED: POTASSIUM CL 10 MEQ TAB PO ONE (10:16)
--- NOTE | 2018-02-28 13:11 | PDCARPN ---
Cardiology Progress Note Chief Complaint: Continues to have mild shortness of breath with exertion Assessment/Plan: Assessment: 67-year-old male with significant past history of paroxysmal atrial fibrillation , acute on chronic systolic congestive heart failure, nonischemic cardiomyopathy with EF of 30% on most recent VISHAL (while in atrial fibrillation) , noted off of cardiac catheterization done few days prior to VISHAL when patient was in sinus rhythm, EF of 50%), hypertension, moderate mitral regurgitation, COPD, tobacco abuse. Admitted 02/27/2018 for increased shortness of breath, and peripheral swelling. Noted to be extremely hypertensive, on admission with systolic blood pressures in 200s. Despite the patient reporting being compliant to medication. Patient with noted recent VISHAL on February 18, showing mildly dilated LV with severely reduced LV systolic function, EF of 30%, moderate global hypokinesis with moderate MR. Cardiac catheterization done on showed angiographically normal coronary artery with mild LV dysfunction , EF was noted to be at 50% of the time (when he was in sinus rhythm). This admission, patient admitted with a BNP of 4840. Yesterday afternoon noted to have a indeterminate troponin of 0.046. Patient reports no history of chest pain or pressure. At this time: Patient has been treated with IV diuresis of Lasix, his weight is down approximately 1.2 kilos from yesterday. O greater than I. He reports significant improvement in his shortness of breath, and has had significant improvement in his peripheral edema. He reports no chest pressure or pain. Repeated troponin continues to be indeterminate at 0.054 this morning. Continues to have elevated blood pressure despite recent increase of lisinopril and being transitioned over to carvedilol. Has had to have 2 doses of IV hydralazine to keep systolic blood pressure less than 180. Continuous cardiac monitoring showing sinus rhythm, noted around 3:20 a.m., of what appears to be SVT with rates greater than 300. Review electrocardiogram with both Dr. Robles and Dr. Lindsey of EP services, who feels this is artifact. Plan: 1. Acute on chronic systolic heart failure: Patient's weight is down, reports significant improvement in SOB. IV Lasix has been decreased to once a day, continue on current dose, will transition to torsemide tomorrow. Continue monitoring I&Os. Continue daily weights. Will add potassium supplement today ( potassium 3.5). Repeat BMP in a.m. 2. Indeterminate troponin: Patient with noted normal coronary arteries off of catheterization less than 14 days ago. Continues to have indeterminate troponin. Reports no chest pain or pressure. Probably due to hypertension, flow mismatch, and heart failure. Continue to trend troponins. 3. Nonischemic cardiomyopathy: Patient's most recent reporting of LV systolic function off a VISHAL, with noted LV of 30%. Transition to carvedilol yesterday, on lisinopril, will start him on low-dose Aldactone. Diuresis as above. 4. Hypertension: Patient's blood pressure elevated, requiring hydralazine despite recent increase in lisinopril in transition to carvedilol. Today we will increase lisinopril to 20 mg p.o. Q.day, also added Aldactone. Will continue to monitor. P.r.n. Hydralazine. 5. Paroxysmal atrial fibrillation: Patient has been maintaining sinus rhythm since hospital cessation. Continue on beta-tara as mentioned above. Patient is on full anticoagulation of Eliquis. 6. Moderate mitral regurgitation: Noted off of VISHAL. Will continue to monitor. Diuresis and medication management as above. Will plan for serial monitoring of MR by echocardiogram in future. 7. Tobacco abuse: Patient currently on Nicoderm patch. Tobacco cessation counseling done. 02/28/18 13:09 Subjective: Patient reports improvement in shortness of breath and peripheral edema. Denies of chest pressure or pain. Does report occasional lightheadedness with positional changes. Denies of any orthopnea, PND, palpitations, near-syncope or syncopal events. Reviewed/Discussed With: hospitalist (Dr Fisher), other (Dr Robles and Dr Lindsey) Objective: Vital Signs (8 Hrs) Temp Pulse Resp BP Pulse Ox 02/28/18 11:27 36.6 C 62 17 121/61 H 92 02/28/18 07:50 36.3 C 61 16 171/95 H 99 Intake/Output (24 Hrs) 02/27/18 02/28/18 03/01/18 05:59 05:59 05:59 Intake Total 150 1610 790 Output Total 1150 3325 1000 Balance -1000 -1715 -210 Intake: Oral (ml) 150 1610 790 Output: Urine (ml) 1150 3325 1000 Urinal 650 3325 1000 Other: Weight 70.1 kg 68.6 kg Number of Voids Urinal 2 1 Number of Stools Urinal 1 Result Diagrams: 02/27/18 02:24 03/01/18 03:34 Cardiac Labs: Cardiac Lab Results (72 Hrs) 02/28/18 02/27/18 03:20 10:15 Troponin I 0.054 H 0.046 H - Physical Exam Constitutional: healthy appearing, no apparent distress Ears, Nose, Mouth, Throat: moist mucous membranes Cardiovascular: regular rate and rhythm, no rubs, no gallops, systolic murmur (2 /6 systolic murmur noted along left sternal border), jugular vein distention (5- 6 cm above sternal notch), pulses symmetric bilat, No carotid bruit Peripheral Pulses: 1+: dorsalis-pedis (R), dorsalis-pedis (L), 2+: carotid (R), carotid (L) Respiratory: expiratory wheeze (Mild. no rhonchi, rales are noted. No accessary muscle use, no intercostal muscle retraction noted.), other Gastrointestinal: normoactive bowel sounds, no tenderness, no masses Skin: warm, No no edema (Trace to +1 peripheral edema bilateral lower extremities to knees) Neurologic: AAOx3 Psychiatric: cooperative, interactive, following commands ICD10 Worksheet Patient Problems: Problems Problem Status Onset CHF (congestive heart failure) Acute Hypertensive urgency Acute Pulmonary edema Acute Inguinal hernia Active Atrial flutter Acute
--- NOTE | 2018-02-28 13:29 | HOSPPROG ---
Hospitalist Progress Note Assessment/Plan: #CHF - Exacerbation #Acute respiratory failure #pAfib #chronic AC #HTN, elevated #Abnormal EKG #indeterminate troponin Plan: -Cards following -Change Lasix to Torsemide -Increase Lisinopril again today, 20mg daily -cont Carvedilol -repeat trop in a.m -change to inpatient for continued mgmt, htn support, repeat trop in a.m. Subjective: no cp or sob. no n/v. still with elevated BP. Objective: Vital Signs Temp Pulse Resp BP Pulse Ox 36.6 C 62 17 121/61 H 92 02/28/18 11:27 02/28/18 11:27 02/28/18 11:27 02/28/18 11:27 02/28/18 11:27 Laboratory Results 02/28/18 03:20 02/27/18 02/28/18 03/01/18 05:59 05:59 05:59 Intake Total 150 1610 790 Output Total 1150 3325 1000 Balance -1000 -1715 -210 PT 15.6 SEC (12.0-15.0) H 02/27/18 02:24 INR 1.22 (0.83-1.16) H 02/27/18 02:24 - Physical Exam Constitutional: no apparent distress Eyes: PERRL Ears, Nose, Mouth, Throat: moist mucous membranes, hearing normal Cardiovascular: regular rate and rhythym, No JVD, No edema Respiratory: no respiratory distress, no rales or rhonchi, clear to auscultation Gastrointestinal: normoactive bowel sounds Skin: warm Neurologic: AAOx3 Psychiatric: interacting appropriately, not anxious, not encephalopathic Lymph, Heme, Immunologic: No petechiae ICD10 Worksheet Patient Problems: Problems Problem Status Onset CHF (congestive heart failure) Acute Hypertensive urgency Acute Pulmonary edema Acute Inguinal hernia Active Atrial flutter Acute
--- NOTE | 2018-02-28 16:01 | PDMN ---
Medical Necessity Medical necessity: change to IP; los>2mn for CHF exacerbation, acute resp failure, PAF, elevated BP, abn EKG, and indeterminate troponin; requires continued medical management, including medication adjustment, and repeat troponin; comorbid cardiomyopathy, valvular heart disease, and likely COPD; per order and progress note 02/28/18
[2018-03-01] MEDS: hydrALAZINE 20 MG/ML VIAL IVP PRN (03:57)
[2018-03-01] MEDS: APIXABAN 5 MG TAB PO SCH ×2 (05:47→17:05)
[2018-03-01] MEDS: LISINOPRIL 20 MG TAB PO SCH ×2 (05:47→08:34)
[2018-03-01] MEDS: TORSEMIDE 20 MG TAB PO SCH (08:33)
[2018-03-01] MEDS: SPIRONOLACTONE 25 MG TAB PO SCH (08:33)
[2018-03-01] MEDS: NICOTINE 14 MG/24 HR PATCH TD SCH (08:33)
[2018-03-01] MEDS: amLODIPine BESYLATE 5 MG TAB PO SCH (08:34)
[2018-03-01] MEDS: CARVEDILOL 25 MG TAB PO SCH ×2 (08:34→17:05)
--- NOTE | 2018-03-01 12:29 | ASMTCMCOM ---
CM Note CM Note Notes: Pts case discussed in tx rounds. Pts blood pressure remains high. Pt will stay for another time. Pt had an ultrasound of his abdominal. The plan remains the same. Pt will not have any d/c needs. CM available for changes. Plan: Independent Date Signed: 03/01/2018 12:28 PM Electronically Signed By:BELA Fulton
[2018-03-01] MEDS ORDERED: LISINOPRIL 20 MG TAB PO SCH (13:20)
--- NOTE | 2018-03-01 13:24 | HOSPPROG ---
Hospitalist Progress Note Assessment/Plan: #CHF - Exacerbation #Acute respiratory failure #pAfib #chronic AC #HTN, elevated #Abnormal EKG #indeterminate troponin: trending down Plan: -Cards following -Change Lasix to Torsemide today -Increase Lisinopril to 30mg daily -start Amlodipine 5mg daily -cont Carvedilol -cont Spironolactone -f/u renal US -cont inpatient Subjective: still with very elevated BP. Hydralazine PRN given. no cp or sob. feels better Objective: Vital Signs Temp Pulse Resp BP Pulse Ox 36.6 C 70 16 176/86 H 98 03/01/18 12:00 03/01/18 11:16 03/01/18 12:00 03/01/18 11:16 03/01/18 12:00 Laboratory Results 03/01/18 03:34 02/28/18 03/01/18 03/02/18 05:59 05:59 05:59 Intake Total 790 240 Output Total 1575 150 Balance -785 90 PT 15.6 SEC (12.0-15.0) H 02/27/18 02:24 INR 1.22 (0.83-1.16) H 02/27/18 02:24 - Physical Exam Constitutional: no apparent distress Eyes: PERRL, EOMI Ears, Nose, Mouth, Throat: moist mucous membranes Cardiovascular: regular rate and rhythym, No edema Respiratory: no respiratory distress, reduced air movement Gastrointestinal: normoactive bowel sounds, soft, non-tender abdomen Skin: warm Neurologic: AAOx3 Psychiatric: interacting appropriately, not anxious, not encephalopathic Lymph, Heme, Immunologic: No petechiae ICD10 Worksheet Patient Problems: Problems Problem Status Onset CHF (congestive heart failure) Acute Hypertensive urgency Acute Pulmonary edema Acute Inguinal hernia Active Atrial flutter Acute
[2018-03-01] MEDS ORDERED: LISINOPRIL 10 MG TAB PO ONE (13:30)
--- NOTE | 2018-03-01 14:38 | PDCARPN ---
Cardiology Progress Note Chief Complaint: Patient reports continued to have mild dyspnea on exertion, but significant improvement since admission. Assessment/Plan: Assessment: 67-year-old male with significant past history of paroxysmal atrial fibrillation , acute on chronic systolic congestive heart failure, nonischemic cardiomyopathy with EF of 30% on most recent VISHAL (while in atrial fibrillation) , noted off of cardiac catheterization done few days prior to VISHAL when patient was in sinus rhythm, EF of 50%), hypertension, moderate mitral regurgitation, COPD, tobacco abuse. Admitted 02/27/2018 for increased shortness of breath, and peripheral swelling. Noted to be extremely hypertensive, on admission with systolic blood pressures in 200s. Despite the patient reporting being compliant to medication. Patient with noted recent VISHAL on February 18, showing mildly dilated LV with severely reduced LV systolic function, EF of 30%, moderate global hypokinesis with moderate MR. Cardiac catheterization done on showed angiographically normal coronary artery with mild LV dysfunction , EF was noted to be at 50% of the time (when he was in sinus rhythm). This admission, patient admitted with a BNP of 4840. 02/28/2018 limited echocardiogram done for re-evaluation of LV function and mitral valve. Showing LV function has normalized, with EF of 55-60%. With no wall motion abnormalities. MR has improved, now only mild. Today: Despite recent medication changes, patient's blood pressure remains elevated, with systolics greater than 180 at time at night. Does improve with p.r.n. Hydralazine. He reports no episodes of chest pressure or pain. Reports shortness of breath has improved. Continuous cardiac monitoring shows sinus rhythm with no malignant arrhythmias or pauses. Laboratory studies showing BUN at 22, creatinine at 1.1. Troponin on downward decline at 0.039. Weight is down approximately 1 kilos from yesterday. Plan: 1. Combined systolic heart: Limited echo yesterday showing EF has normalized. He appears fairly euvolemic at this time. Transitioned over to torsemide today. 2. Indeterminate troponin: Patient with noted normal coronary arteries off of catheterization less than 14 days ago. Continues to have indeterminate troponin. Reports no chest pain or pressure. Probably due to hypertension, flow mismatch, and heart failure. Today troponin trending downward. 3. Nonischemic cardiomyopathy: Limited echo today showing ejection fraction has normalized, with normal LV systolic function.. Transition to carvedilol yesterday, on lisinopril, will start him on low-dose Aldactone. Diuresis as above. 4. Hypertension: Patient's blood pressure remains high despite being on carvedilol, lisinopril, torsemide, and Aldactone. Will add amlodipine to medication regime, also, hospital Services has increased lisinopril to 30 mg p.o. Q.day. Continue to monitor, if need be, increased amlodipine to 10 mg tomorrow. Renal artery Doppler study ordered, will check PTH, free cortisol, a.m. Cortisol level and UA. 5. Paroxysmal atrial fibrillation: Patient has been maintaining sinus rhythm since hospital cessation. Continue on beta-tara as mentioned above. Patient is on full anticoagulation of Eliquis. 6. Mitral regurgitation: Limited echo yesterday showing mitral regurgitation has been improved to mild, with maintaining of sinus rhythm and diuresis. 7. Tobacco abuse: Patient currently on Nicoderm patch. Tobacco cessation counseling done. 03/01/18 14:36 Subjective: Patient denies of any chest pressure pain. Reporting mild dyspnea on exertion. Denies of any palpitations, lightheadedness, orthopnea, PND, near-syncope, or syncopal events. Reviewed/Discussed With: hospitalist (Dr Fisher), other (Dr Robles) Objective: Vital Signs (8 Hrs) Temp Pulse Resp BP Pulse Ox 03/01/18 12:00 36.6 C 16 98 03/01/18 11:16 70 176/86 H 03/01/18 08:00 36.7 C 69 13 186/97 H 96 Intake/Output (24 Hrs) 02/28/18 03/01/18 03/02/18 05:59 05:59 05:59 Intake Total 790 240 Output Total 1575 150 Balance -785 90 Intake: Oral (ml) 790 240 Output: Urine (ml) 1575 150 Urinal 1575 150 Other: Weight 67.9 kg Intake Quantity Yes Sufficient Number of Voids Urinal 2 Result Diagrams: 02/27/18 02:24 03/01/18 03:34 Cardiac Labs: Cardiac Lab Results (72 Hrs) 03/01/18 03:34 Troponin I 0.039 H - Physical Exam Constitutional: WDWN, no apparent distress Ears, Nose, Mouth, Throat: moist mucous membranes Cardiovascular: regular rate and rhythm, no rubs, systolic murmur (1/6 left sternal border), jugular vein distention (4-5 cm above sternal notch at a 45 degree angle), pulses symmetric bilat Peripheral Pulses: 1+: dorsalis-pedis (R), dorsalis-pedis (L), 2+: carotid (R), carotid (L) Respiratory: clear to auscultate bilat, no crackles, no wheezes Gastrointestinal: normoactive bowel sounds, no tenderness Skin: no rashes, warm, no edema (Trace pedal edema bilateral lower extremities) Neurologic: AAOx3 Psychiatric: cooperative, interactive, following commands ICD10 Worksheet Patient Problems: Problems Problem Status Onset CHF (congestive heart failure) Acute Hypertensive urgency Acute Pulmonary edema Acute Inguinal hernia Active Atrial flutter Acute
--- NOTE | 2018-03-01 15:40 | ECHO ---
[email or web address] [address] [address] Main: [phone] Fax: Transthoracic Echocardiogram Name: NIXON FOSTER MR#: [id number] Study Date: 02/28/2018 Study Time: 02:53 PM Date of : 1950 Age: 67 year(s) Height: 175.3 cm (69 in.) Weight: 68.49 kg (151 lb.) BSA: 1.83 m2 Gender: Male Examination: Limited Echo Indication: CHF, EVAL EF, MR Image Quality: Adequate Contrast: Requested by: Wilman Chavis BP: 121 mmHg/61 mmHg Heart Rate: Rhythm: Indication: CHF, EVAL EF, MR Procedure Staff Shuttle Route Vehicle Operator: Ritu Daneils RDCS Reading Physician: Nick Robles MD Requesting Provider: Conclusions: Normal size left ventricle. Normal global systolic LV function. The ejection fraction is estimated to be 55-60 %. No regional wall motion abnormality. Normal size right ventricle. Normal RV function. The mitral valve is normal in appearance and function. Mild mitral valve leaflet calcification is present. Mild mitral valve regurgitation is present. No mitral stenosis is present. The aortic valve is tri-leaflet. Aortic sclerosis is present. Mild aortic valve regurgitation is present. The tricuspid valve is normal in appearance and function. Mild to moderate tricuspid valve regurgitation. No pericardial effusion. Compared to prior echocardiogram the ejection fraction and mitral regurgitation have improved. Measurements: Chambers Valvular Assessment AV/MV Valvular Assessment TV/PV Normal Normal Normal Name Value Range Name Value Range Name Value Range LVEF (BP): 60 % (>=55 %) EF Range: 55-60 % Continued Measurements: Patient: NIXON FOSTER Study Date: 02/28/2018 Page 1 of 2 02:53 PM Findings: Left Ventricle: Normal size left ventricle. Normal global systolic LV function. The ejection fraction is estimated to be 55-60 %. No regional wall motion abnormality. Right Ventricle: Normal size right ventricle. Normal RV function. Mitral Valve: The mitral valve is normal in appearance and function. Mild mitral valve leaflet calcification is present. Mild mitral valve regurgitation is present. No mitral stenosis is present. Aortic Valve: The aortic valve is tri-leaflet. Aortic sclerosis is present. Mild aortic valve regurgitation is present. Tricuspid Valve: The tricuspid valve is normal in appearance and function. Mild to moderate tricuspid valve regurgitation. Pericardium: No pericardial effusion. (No Signature Object) Patient: NIXON FOSTER Study Date: 02/28/2018 Page 2 of 2 02:53 PM [id number]
[2018-03-02] MEDS: APIXABAN 5 MG TAB PO SCH ×2 (03:40→08:11)
[2018-03-02 07:28] VITALS: BP 163/90
[2018-03-02] MEDS: amLODIPine BESYLATE 5 MG TAB PO SCH (08:11)
[2018-03-02] MEDS: CARVEDILOL 25 MG TAB PO SCH (08:11)
[2018-03-02] MEDS: NICOTINE 14 MG/24 HR PATCH TD SCH (08:12)
[2018-03-02] MEDS: SPIRONOLACTONE 25 MG TAB PO SCH (08:12)
[2018-03-02] MEDS: TORSEMIDE 20 MG TAB PO SCH (09:24)
--- NOTE | 2018-03-02 10:25 | PDCARPN ---
Cardiology Progress Note Chief Complaint: Patient reports no cardiovascular complaints Assessment/Plan: Assessment: 67-year-old male with significant past history of paroxysmal atrial fibrillation , acute on chronic systolic congestive heart failure, nonischemic cardiomyopathy with EF of 30% on most recent VISHAL (while in atrial fibrillation) , noted off of cardiac catheterization done few days prior to VISHAL when patient was in sinus rhythm, EF of 50%), hypertension, moderate mitral regurgitation, COPD, tobacco abuse. Admitted 02/27/2018 for increased shortness of breath, and peripheral swelling. Noted to be extremely hypertensive, on admission with systolic blood pressures in 200s. Despite the patient reporting being compliant to medication. Patient with noted recent VISHAL on February 18, showing mildly dilated LV with severely reduced LV systolic function, EF of 30%, moderate global hypokinesis with moderate MR. Cardiac catheterization done on showed angiographically normal coronary artery with mild LV dysfunction , EF was noted to be at 50% of the time (when he was in sinus rhythm). This admission, patient admitted with a BNP of 4840. 02/28/2018 limited echocardiogram done for re-evaluation of LV function and mitral valve. Showing LV function has normalized, with EF of 55-60%. With no wall motion abnormalities. MR has improved, now only mild. Renal artery Doppler ultrasound 02/28/2018 showing no signs of flow limiting disease. Patient reports significant improvement in dyspnea on exertion. Denies of any chest pain or pressure. Blood pressure better controlled overnight, with systolic ranging from 140-160. No hydralazine need to be used. Labs UA negative. A.m. Cortisol level within normal limits. Elevated PTH at 124.7. BUN creatinine within limits. Salivary cortisol level pending. Continuous cardiac monitoring showing sinus rhythm, with occasional PVC, no other malignant arrhythmias or pauses. Weight is down 1.3 kilos from yesterday. Plan: 1. Combined systolic heart: Limited echo done 02/28/2018, showing normalization of LV systolic function, with EF of 55-60%. Continue on torsemide and Aldactone. Encouraged patient to monitor weight on a daily basis. He is to notify our office if he gains more than 2 lb in a day or 5 lb in a week. 2. Indeterminate troponin: Patient with noted normal coronary arteries off of catheterization less than 14 days ago. Continues to have indeterminate troponin. Reports no chest pain or pressure. Probably due to hypertension, flow mismatch, and heart failure. Indeterminate troponins trending downward. 3. Nonischemic cardiomyopathy: Limited echocardiogram showing normalization of LVEF, continue on current doses of carvedilol, lisinopril, Aldactone, torsemide. 4. Hypertension: BP better controlled with increased lisinopril and addition of amlodipine to medication regime. PTH elevated, discussed with Dr. Fisher, will have him follow up with PCP for out patient work up. Have asked patient to monitor blood pressure twice daily, keep a log, and have bring it to our office for follow-up. 5. Paroxysmal atrial fibrillation: Patient has been maintaining sinus rhythm since hospital admission. Continue on beta-tara as mentioned above. Patient is on full anticoagulation of Eliquis. 6. Mitral regurgitation: Limited echo showing mitral regurgitation has been improved to mild, with maintaining of sinus rhythm and diuresis. 7. Tobacco abuse: Patient currently on Nicoderm patch. Tobacco cessation counseling done. Patient probable discharge today, have scheduled him to be seen in our office next Sunday by myself. We have discussed the importance of medication compliance, daily weights, and BP monitoring 03/02/18 10:25 Subjective: Patient denies of any chest pain, pressure, shortness of breath, lightheadedness , orthopnea, PND, edema, near-syncope or syncopal events. Reviewed/Discussed With: hospitalist (Dr Fisher), other (Dr Lundy) Objective: Vital Signs (8 Hrs) Temp Pulse Resp BP Pulse Ox 03/02/18 07:26 36.6 C 62 18 163/90 H 98 03/02/18 03:46 36.7 C 76 16 168/86 H 91 L Intake/Output (24 Hrs) 03/01/18 03/02/18 03/03/18 05:59 05:59 05:59 Intake Total 790 1015 Output Total 1575 800 Balance -785 215 Intake: Oral (ml) 790 1015 Output: Urine (ml) 1575 800 Urinal 1575 800 Other: Weight 67.9 kg 66.361 kg Intake Quantity Yes Yes Sufficient Number of Voids Urinal 2 Result Diagrams: 02/27/18 02:24 03/02/18 03:21 Cardiac Labs: Cardiac Lab Results (72 Hrs) 03/01/18 03:34 Troponin I 0.039 H - Physical Exam Constitutional: WDWN, healthy appearing, no apparent distress Cardiovascular: regular rate and rhythm, no rubs, systolic murmur (1/6 left sternal border), jugular vein distention (4-5 cm above sternal notch), pulses symmetric bilat, No carotid bruit Peripheral Pulses: 1+: dorsalis-pedis (R), dorsalis-pedis (L), 2+: carotid (R), carotid (L) Respiratory: no crackles, expiratory wheeze, No reduced air movement Gastrointestinal: normoactive bowel sounds, no masses Skin: warm, No no edema (Trace pedal edema bilateral lower extremities) Neurologic: AAOx3 Psychiatric: cooperative, interactive, following commands ICD10 Worksheet Patient Problems: Problems Problem Status Onset CHF (congestive heart failure) Acute Hypertensive urgency Acute Pulmonary edema Acute Inguinal hernia Active Atrial flutter Acute
--- NOTE | 2018-03-02 11:54 | PDDCSUM ---
Discharge Summary Discharge Summary: 67-year-old male with significant past history of paroxysmal atrial fibrillation , acute on chronic systolic congestive heart failure, nonischemic cardiomyopathy with EF of 30% on most recent VISHAL (while in atrial fibrillation) , noted off of cardiac catheterization done few days prior to VISHAL when patient was in sinus rhythm, EF of 50%), hypertension, moderate mitral regurgitation, COPD, tobacco abuse. Admitted 02/27/2018 for increased shortness of breath, and peripheral swelling. Noted to be extremely hypertensive, on admission with systolic blood pressures in 200s. Despite the patient reporting being compliant to medication. Patient with noted recent VISHAL on February 18, showing mildly dilated LV with severely reduced LV systolic function, EF of 30%, moderate global hypokinesis with moderate MR. Cardiac catheterization done on showed angiographically normal coronary artery with mild LV dysfunction , EF was noted to be at 50% of the time (when he was in sinus rhythm). This admission, patient admitted with a BNP of 4840. 02/28/2018 limited echocardiogram done for re-evaluation of LV function and mitral valve. Showing LV function has normalized, with EF of 55-60%. With no wall motion abnormalities. MR has improved, now only mild. Renal artery Doppler ultrasound 02/28/2018 showing no signs of flow limiting disease. Patient reports significant improvement in dyspnea on exertion. Denies of any chest pain or pressure. Blood pressure better controlled overnight, with systolic ranging from 140-160. No hydralazine need to be used. Labs UA negative. A.m. Cortisol level within normal limits. Elevated PTH at 124.7. BUN creatinine within limits. Salivary cortisol level pending. Continuous cardiac monitoring showing sinus rhythm, with occasional PVC, no other malignant arrhythmias or pauses. Weight is down 1.3 kilos from yesterday. At this time ready for discharge with medication changes per below. Consultants: Cardiology F/U Cardiology next week. PCP next week DDx: 1. Combined systolic heart: Limited echo done 02/28/2018, showing normalization of LV systolic function, with EF of 55-60%. Continue on torsemide and Aldactone. Encouraged patient to monitor weight on a daily basis. He is to notify our office if he gains more than 2 lb in a day or 5 lb in a week. 2. Indeterminate troponin: Patient with noted normal coronary arteries off of catheterization less than 14 days ago. Continues to have indeterminate troponin. Reports no chest pain or pressure. Probably due to hypertension, flow mismatch, and heart failure. Indeterminate trops trending downward. 3. Nonischemic cardiomyopathy: Limited echocardiogram showing normalization of LVEF, continue on current doses of carvedilol, lisinopril, Aldactone, torsemide. 4. Hypertension: BP better controlled with increased lisinopril and addition of amlodipine to medication regime. Have asked patient to monitor blood pressure twice daily, keep a log 5. Paroxysmal atrial fibrillation: Patient has been maintaining sinus rhythm since hospital admission. Continue on beta-tara as mentioned above. Patient is on full anticoagulation of Eliquis. 6. Mitral regurgitation: Limited echo showing mitral regurgitation has been improved to mild, with maintaining of sinus rhythm and diuresis. 7. Tobacco abuse: Patient currently on Nicoderm patch. Tobacco cessation counseling done. 8. elevated PTH. Normal calcium, normal renal function. ?secondary hyperparathyroidism. Will f/u with PCP. Prior to discharge we will get repeat PTH and Vitamin D and Phos. These will need to be followed up by his PCP Exam: NAD AAO3 RRR, NO EDEMA CTA B MEDS: SEE MED REC TOTAL TIME SPENT ON D/C IS 40 MINS
--- NOTE | 2018-03-02 12:01 | ASMTLACE ---
LACE Length of stay for Answers: 2 days current admission Acuity / Level of Answers: Yes Care: Did the patient have an inpatient admission? Comorbidities - select Answers: Chronic pulmonary disease all that apply Congestive heart failure Other Notes: AFib; HTN # of Emergency department Answers: 1-2 visits in the last 6 months Score: 11 Date Signed: 03/02/2018 12:00 PM Electronically Signed By:LISA Johnson
--- NOTE | 2018-03-02 12:17 | ASDISCHSUM ---
Discharge Information Plan Status:Home with No Needs Medically Cleared to Leave:03/02/2018 Discharge Date:03/02/2018 CM D/C Disposition:Home, Routine, Self-Care ADT D/C Disposition:Home, Routine, Self-Care Projected Discharge Date:03/02/2018 Transportation at D/C:Self Discharge Delay Reason: Follow-Up Date:03/02/2018 Discharge Slot: Final Diagnosis: Placement Information Patient Contact Information Contact Name:JOSE JUAN Relationship: Address: Home Phone: Work Phone: City: Alternate Phone: State/[employer] [place] Code: Email: Financial Information Financial Class:Medicare Primary Plan Desc:MEDICARE INPATIENT Primary Plan Number:[id number] Secondary Plan Desc:MED[place] [place] Secondary Plan Number:[id number] Assessment Information LACE LACE Length of stay for Answers: 2 days current admission Acuity / Level of Answers: Yes Care: Did the patient have an inpatient admission? Comorbidities - select Answers: Chronic pulmonary disease all that apply Congestive heart failure Other Notes: AFib; HTN # of Emergency department Answers: 1-2 visits in the last 6 months Score: 11 Date Signed: 03/02/2018 12:00 PM Electronically Signed By:LISA Johnson [facility] Initial CM Assessment Living Arrangements What is your living Answers: Alone arrangement? Who do you live with? Type Of Residence What kind of residence do Answers: Apartment you live in? Discharge Plan Comments Coordination Status Comments Notes: Pts case discussed in tx rounds. Pt is a 67 y/o man admitted for shortness of breath. Transitional care is following this case. Pt will most likely d/c independent when medically stable. No therapies ordered at this time. CM available for changes. Plan: Independent Date Signed: 02/27/2018 02:54 PM Electronically Signed By:BELA Fulton [facility] CM Progress Note CM Note CM Note Notes: Pts case discussed in tx rounds. Pts blood pressure remains high. Pt will stay for another time. Pt had an ultrasound of his abdominal. The plan remains the same. Pt will not have any d/c needs. CM available for changes. Plan: Independent Date Signed: 03/01/2018 12:28 PM Electronically Signed By:BELA Fulton Case Management Discharge Plan Note Case Management Discharge Discharge Order Complete? Answers: Yes Patient to Obtain Answers: Independently Medications Transportation Arranged Answers: Other Notes: pt is taking the bus Discharge Comments Notes: Pt is discharging home today with no CM needs. IM explained and signed, copy in chart and to pt. Pt stated he will take a bus home. Date Signed: 03/02/2018 12:15 PM Electronically Signed By:LISA Johnson Intervention Information Intervention Type:*VIDA-Signed Date of Service:02/27/2018 09:34 AM Patient Type:Observation Staff Member:Teresita Alex Hours: Discipline: Severity: Comment:
== END 2018-03-02 12:59 | disposition home or self-care (01) | DRG 293 ==
LOC: EDUNIT# → F2W 04:35 → OBSVTOIN 02-28 13:29
PROVIDERS: ADMIT Family Medicine; ATTEND Family Medicine
DX: I11.0 Hypertensive heart disease with heart failure (principal); I50.23 Acute on chronic systolic (congestive) heart failure; I16.0 Hypertensive urgency; I42.9 Cardiomyopathy, unspecified; I48.0 Paroxysmal atrial fibrillation; I34.0 Nonrheumatic mitral (valve) insufficiency; D64.9 Anemia, unspecified; J44.9 Chronic obstructive pulmonary disease, unspecified; Z72.0 Tobacco use; Z79.01 Long term (current) use of anticoagulants
CPT/HCPCS: 84484-PO; 96374; G0378; J0360; J1940

== ENCOUNTER → 2018-08-08 | Day surgery (SDC) | payer OTHER, MEDICAID ==
[~2018-08-08] MED LIST: ATROPINE SULFATE 1 MG/10 ML SYR IVP ONE; BENZOCAINE UNIT DOSE SPRAY HURRICAINE MM ONE; LIDOCAINE 2% 2 ML INJ ONE; MIDAZOLAM 2 MG/2 ML VIAL IVP ONE; NS 500 ML IV ONE; PROPOFOL 200 MG/20 ML VIAL ONE; fentaNYL 100 MCG/2 ML INJ IVP ONE
--- NOTE | 2018-08-08 14:25 | PDANEPAE ---
ANE Past Medical History - Cardiovascular History Hx Arrhythmias: Yes Hx CHF / Valvular Disease: Yes - Pulmonary History Hx Oxygen in Use at Home: No Hx Sleep Apnea: No - Endocrine History Hx Diabetes: No - Renal History Hx Renal Disorders: Yes Renal History Comment: Patient reports mild elevation in creatinine - Liver History Hx Hepatic Disorders: No - Neurological & Psychiatric Hx Hx Neurological and Psychiatric Disorders: No - Chronic Pain History Chronic Pain: No ANE Review of Systems Review of Systems: ANE Patient History - Allergies Allergies/Adverse Reactions: Penicillins Allergy (Verified 02/27/18 07:57) Unknown - Home Medications Home Medications: Apixaban [Eliquis] 5 mg PO BID@06,16 02/27/18 [Last Taken 08/08/18 07:00] - Smoking Hx Smoking Status: Current every day smoker ANE Labs/Vital Signs - Labs Result Diagrams: 08/08/18 14:00 - Vital Signs Height: 175.26 cm Weight: 70.307 kg ANE Physical Exam - Airway Neck exam: FROM Mallampati Score: Class 1 Mouth exam: dentures - Pulmonary Pulmonary: no respiratory distress, no rales or rhonchi, clear to auscultation - Cardiovascular Cardiovascular: irregularly irregular - ASA Status ASA Status: III ANE Anesthesia Plan Anesthesia Plan: GA with mask Total IV Anesthesia: Yes
[2018-08-08 14:28] LABS: INR 1.1 (0.83-1.16); PROTIME(PATIENT) 14.4 SEC (12.0-15.0)
--- NOTE | 2018-08-08 15:09 | PDTEE1 ---
VISHAL Cardioversion Procedure Procedure: electrical cardioversion Indications: other (Atrial Flutter) Procedural Details: Pads were placed in anterior-posterior position. VISHAL probe was advanced and standard images obtained. There is no evidence of left atrial or left atrial appendage thrombus. Synchronized cardioversion attempt #1: 50J Results: normal sinus rhythm Conclusions: successful VISHAL cardioversion Patient Problems: Problems Problem Status Onset Inguinal hernia Active Atrial flutter Acute CHF (congestive heart failure) Acute Hypertensive urgency Acute Pulmonary edema Acute
--- NOTE | 2018-08-08 15:31 | POSTANESTH ---
Post Anesthetic Evaluation Cardiovascular Status: Normal, Stable Respiratory Status: Normal, Stable Level of Consciousness/Mental Status: Can Participate in Eval Pain Control: Adequate, Prn Tx Ordered Nausea/Vomiting Control: Adequate, Prn Tx Ordered Complications Possibly Related to Anesthesia: None Noted
--- NOTE | 2018-08-09 17:39 | CPEKG ---
Test Reason : OPEN Blood Pressure : / mmHG Vent. Rate : 116 BPM Atrial Rate : 116 BPM P-R Int : 091 ms QRS Dur : 094 ms QT Int : 385 ms P-R-T Axes : 259 -41 214 degrees QTc Int : 535 ms Ectopic atrial tachycardia, unifocal LVH with secondary repolarization abnormality Prolonged QT interval Confirmed by Chauncey Elliott ([id number]) on 08/09/2018 5:39:18 PM Referred By: Confirmed By:Chauncey Elliott
--- NOTE | 2018-08-09 17:40 | CPEKG ---
Test Reason : OPEN Blood Pressure : / mmHG Vent. Rate : 082 BPM Atrial Rate : 082 BPM P-R Int : 151 ms QRS Dur : 094 ms QT Int : 404 ms P-R-T Axes : 029 -55 152 degrees QTc Int : 472 ms Sinus rhythm Ventricular premature complex Left anterior fascicular block LVH with secondary repolarization abnormality Confirmed by Chauncey Elliott ([id number]) on 08/09/2018 5:39:49 PM Referred By: Confirmed By:Chauncey Elliott
== END | disposition home or self-care (01) ==
LOC: FCATH 13:37
PROVIDERS: ATTEND Internal Medicine Cardiovascular Disease
PROC: 5A2204Z Restoration of Cardiac Rhythm, Single (ICD-10-PCS; principal; 2018-08-08)
PROC: B245ZZ4 Ultrasonography of Left Heart, Transesophageal (ICD-10-PCS; principal; 2018-08-08)
DX: I48.92 Unspecified atrial flutter (principal); F17.210 Nicotine dependence, cigarettes, uncomplicated
CPT/HCPCS: J2704

== ENCOUNTER 2018-08-19 11:06 | Emergency (ER) | payer OTHER, MEDICAID ==
[2018-08-19 11:15] VITALS: BP 146/75
--- NOTE | 2018-08-19 11:25 | EDPHY ---
HPI/HX/ROS/PE/MDM Narrative: CHIEF COMPLAINT: Left shoulder pain HPI: This patient is a 67 year old male with history of hypertension. He presents today with left shoulder pain secondary to a fall seven days ago. The pain is primarily dull. It does not radiate. He has tried OTC pain medications without relief. He denies any other recent trauma. No fever, recent cough or cold, or other further complaints. REVIEW OF SYSTEMS: A comprehensive 10 system review of systems is otherwise negative aside from elements mentioned in the history of present illness and medical decision making. PMH: Hypertension. SOCIAL HISTORY: Single. Retired. Lives in [place]. PHYSICAL EXAM: General:Patient is alert, in no acute distress. Respiratory:No respiratory distress. Breath sounds normal bilaterally. Cardiovascular: Regular rate and rhythm. Strong peripheral pulses. Normal cap refill. Back: Normal to inspection. No tenderness to palpation. Skin: Normal color. No rash. Warm and dry. Extremities: Normal appearance. Full range of motion. Neuro: Oriented x3. Normal motor function. Normal sensory function. ED Course: 67 year old male presents with left shoulder pain ongoing for 8 days following a fall. Exam is largely unremarkable. Plan for x-ray left shoulder to rule out acute osseous abnormalities. Patient began yelling loudly after being in the department for 20 minutes, requesting a cab voucher home. On my evaluation, he agrees to stay for x-rays of the left shoulder. 11:50 Reviewed x-rays. Normal shoulder series. 12:02 Reassessed patient. Discussed imaging results. Plan to discharge home in good condition. The patient requested narcotic pain medication, which I declined to prescribe. At that time, the patient got up and walked out of the department. - Data Points Imaging Results: Imaging Impressions Shoulder X-Ray 08/19/18 11:31 Impression: 1. Possibly 2 small intra-articular joint mice. 2. Mild degenerative changes. General Time Seen by Provider: 08/19/18 11:16 Initial Vital Signs: Initial Vital Signs Heart Rate 64 08/19/18 11:12 Respiratory Rate 16 08/19/18 11:12 Blood Pressure 146/75 H 08/19/18 11:12 O2 Sat (%) 99 08/19/18 11:12 O2 Delivery Mode Room Air Allergies/Adverse Reactions: Penicillins Allergy (Verified 08/19/18 11:11) Unknown Home Medications: Medication Instructions Recorded Acetaminophen [Tylenol 325mg (*)] 650 mg PO Q4HRS PRN tab 02/18/18 Nicotine [Nicoderm Cq 14 mg (*)] 14 mg TD DAILY patch 02/18/18 Apixaban [Eliquis] 5 mg PO BID@06,16 02/27/18 Carvedilol [Coreg (*)] 12.5 mg PO BIDMEAL #60 tab 03/02/18 Lisinopril [Zestril 20 mg (*)] 30 mg PO DAILY #30 tab 03/02/18 Spironolactone [Aldactone 25 MG 12.5 mg PO DAILY #30 tab 03/02/18 (*)] Torsemide [Demadex] 20 mg PO DAILY AT 10AM #30 tab 03/02/18 amLODIPine BESYLATE [Norvasc 5 mg 5 mg PO DAILY #30 tab 03/02/18 (*)] Departure - Departure Disposition: Home, Routine, Self-Care Clinical Impression: Left shoulder pain Qualifiers: Chronicity: acute Qualified Code(s): M25.512 - Pain in left shoulder Condition: Good Instructions: Shoulder Pain (ED) Additional Instructions: Rest, apply ice as needed for comfort. Take ibuprofen, 600mg every 6-8 hours, as needed for pain and swelling. Follow up with your primary care providers for persistent symptoms. Return to the emergency department for worsening pain, swelling, numbness, weakness or other concerns. Referrals: Kenisha Raygoza MD [Primary Care Provider] - As per Instructions Report Scribed for: Huber Arthur Report Scribed by: Nan Robertson Date of Report: 08/19/18 Time of Report: 11:24 Physician Review and Approval Statement: Portions of this note were transcribed by an ED scribe. I personally performed the history, physical exam, and medical decision making; and confirm the accuracy of the information in the transcribed note.
--- NOTE | 2018-08-20 17:33 | ASMTCAGE ---
CAGE Additional Comments Reviewed chart. Positive SBIRT. No MD notes regarding ETOH abuse. CM unable to screen, pt discharged prior to being seen by CM Date Signed: 08/20/2018 05:32 PM Electronically Signed By:Aidee Pompa RN
== END 2018-08-19 12:04 | disposition home or self-care (01) ==
DX: M25.512 Pain in left shoulder (principal); I10 Essential (primary) hypertension